=== PATIENT | female | born 1945 | race Caucasian/White ===

== ENCOUNTER 2019-11-17 13:57 | Outpatient (RCR) | payer OTHER, MEDICAID, SELFPAY | END 2020-02-15 23:59 | disposition home or self-care (01) | LOC: ANHDMC 13:57 | PROVIDERS: PCP Internal Medicine; Visit Provider Internal Medicine | DX: E11.51 Type 2 diabetes mellitus with diabetic peripheral angiopathy without gangrene (principal); Z71.89 Other specified counseling | CPT/HCPCS: G0108 ==

== ENCOUNTER 2020-03-08 15:18 | Outpatient (RCR) | payer OTHER, MEDICAID, SELFPAY | END 2020-06-06 23:59 | disposition home or self-care (01) | LOC: ANHDMC 15:18 | PROVIDERS: PCP Internal Medicine; Visit Provider Internal Medicine | DX: E11.51 Type 2 diabetes mellitus with diabetic peripheral angiopathy without gangrene (principal); Z71.89 Other specified counseling | CPT/HCPCS: G0108 ==

== ENCOUNTER 2020-06-05 08:45 | Outpatient (CLI) | payer OTHER, MEDICAID, SELFPAY ==
[2020-06-05 09:30] LABS: Alveolar/Arterial O2 Gradient 27.2 mmHg; Base Excess ABG 0.7 mEq/l (+/-2.0); Carboxyhemoglobin 0.4 % THb (0-2.0); Fractional Inspired Oxygen 21 %; HCO3 ABG 25.5 mEq/l (22.0-26.0); Methemoglobin ABG 0.2 %THb (0-1.5); Oxygen Content ABG 17.1 %vol (16.0-22.0); Oxygen Saturation ABG 94.7 % (95.0-100.0); Oxyhemoglobin 93.9 % THb (90.0-100.0); PCO2 ABG 41.5 mmHg (35.0-45.0); PO2 ABG 72.8 mmHg (80.0-100.0); PO2 FiO2 Ratio Arterial Blood 3.47 %; Reduced Hemoglobin 5.5 %THb (0-5.0); Site Drawn RIGHT RADIAL; Total Hemoglobin 12.9 g/dL (12.0-18.0); pH ABG 7.406 (7.350-7.450)
[2020-06-05 09:31] LABS: Device ROOM AIR; Modified Allen's Test Pass
--- NOTE | 2020-06-05 10:52 | PCRCNOTE ---
FAXED COPY OF ABG REPORT TO [facility]
--- NOTE | 2020-06-11 17:45 | WPDSIXMINUTE ---
Six Minute Walk Six Minute Walk: DOS: 06/05/2020 REQUESTING: Dayna Alanis MD REASON FOR TESTING: Shortness of breath SIX MINUTE WALK This test was conducted per ATS guidelines. The patient used her personal wheeled walker device during the walk and was on room air. Initial saturaiton was 93%, and pulse was 61. The lowest saturation was 90%. Pulse ranged 55-100 beats per minute. she walked a total of 500 ft/ 142 m. She did not stop during the test. At the end of the walk during recovery, saturation increased to 97%. Pulse returned to baseline. IMPRESSION: There was mild desaturation without timbo hypoxemia. No supplemental oxygen is required with exertion. Distance walked is less than expected for her age. Arterial blood gas on room air: pH 7.406; pCO2 41.5; pO2 72.8 Mildly decreased, HCO3 25.5; Saturation 94.7%, hemoglobin 12.9 g/dL. IMPRESSION: Normal acid-base status with mild hypoxemia.
== END 2020-06-05 08:46 | disposition home or self-care (01) ==
LOC: ANHPFT 08:48
PROVIDERS: PCP Internal Medicine; Visit Provider Internal Medicine Critical Care Medicine
DX: J44.9 Chronic obstructive pulmonary disease, unspecified (principal); R94.2 Abnormal results of pulmonary function studies
CPT/HCPCS: 36600; 82375; 82805; 83050; 94618

== ENCOUNTER 2020-08-11 02:21 | Outpatient (CLI) | payer OTHER, MEDICAID, SELFPAY ==
[2020-08-11 18:59] LABS: SARS-CoV-2 RNA PCR Negative
== END 2020-08-11 02:22 | disposition home or self-care (01) ==
LOC: ANHCOVIDDT 02:22
PROVIDERS: PCP Internal Medicine; Visit Provider Internal Medicine Critical Care Medicine
DX: Z01.812 Encounter for preprocedural laboratory examination (principal); Z20.828 Contact with and (suspected) exposure to other viral communicable diseases
CPT/HCPCS: 87635; C9803; U0003

== ENCOUNTER 2020-08-14 08:21 | Outpatient (CLI) | payer OTHER, MEDICAID, SELFPAY ==
--- NOTE | 2020-09-07 15:30 | WPDSLEEPSTUD ---
Sleep Study Date of Study: 08/14/20 Ordering Provider: Dayna Alanis MD Interpreting Physician: Dayna Alanis MD Sleep Study Type: BiPAP Titration Height: 1.73 m Weight: 117.027 kg Body Mass Index: 39.2 Neck Circumference: 50.8 cm Johnston: 5 Reason for Sleep Study Obstructive sleep apnea, has an old CPAP that needs to be replaced. On her CPAP titration on 07/17/2014 at [facility] her optimal pressure was 16 cm water pressure. Sleep History Desirae Parham is a 75 yo female with a history of obstructive sleep apnea syndrome, restrictive and obstructive lung disease. During the pain the mix she was not able to have a sleep study to replace her old CPAP machine. She presents now for a CPAP / BiPAP titration. She is generally too tired to do anything that she enjoys. She wakes up during the night, has excessive daytime sleepiness and difficulty staying awake during the day. She constantly snores loudly enough that others complain about it. She does not awaken at night with heartburn, belching or coughing. She does not wake up with shortness of breath. She does not have trouble sleeping with a cold. She does not gasp for breath at night or have breathing problems at night witnessed by others. She does not sweat excessively at night or notices her heart pounding or beating irregularly night. She frequently falls asleep during the day, occasionally involuntarily but not while driving because she does not drive a car. She occasionally falls asleep during physical effort. She does not have loss of muscle tone was straw motion. She does not have difficulty during the daytime due to excessive sleepiness. She does not feel paralyzed on waking or falling asleep and does not have vivid dream like seems upon awakening or falling asleep. She has never for a to go to sleep. She denies having nightmares. She does not have racing thoughts. She denies having feelings of saphenous or depression but she feels anxiety about the pandemic. she does not have muscular tension, does not notice parts of her body jerking, she does not kick at night and she does have probably aching feelings in her legs. She denies leg pain at night, does not have morning jaw pain and does not grind her teeth during sleep. She is not bothered by pain during, is not awakened by pain and does not wake up feeling in the morning. Denies waking up with pain in the neck and spine. Normal bedtime is 10:00 p.m. falling asleep within 3 times at night long enough to use. She estimates 6-8 hours of sleep normally. She denies taking naps. She feels good some mornings. Habits: Former smoker, none since 2005. No alcohol. [facility] Past Medical History Medical History (Updated 09/07/20 @ 15:33 by Dayna Alanis MD) Benign essential hypertension Chronic obstructive pulmonary disease, unspecified History of tobacco abuse Hyperlipidemia, unspecified Hypertensive heart disease with heart failure Morbid obesity with BMI of 50.0-59.9, adult DIPTI (obstructive sleep apnea) Primary open angle glaucoma (POAG) of both eyes, moderate stage Primary osteoarthritis of both knees PVD (peripheral vascular disease) Type 2 diabetes mellitus with diabetic autonomic neuropathy, with long-term current use of insulin Surgical History Surgical History (Updated 09/07/20 @ 15:52 by Dayna Alanis MD) Gallbladder & bile duct stone with obstruction S/P tonsillectomy and adenoidectomy Family History Family History Sibling Family history of primary malignant neoplasm of liver Family history of malignant neoplasm of breast in first degree relative Patient's sister is Patient's brother is Mother Family history of malignant neoplasm of breast in first degree relative Patient's mother is Family history of malignant neoplasm Father Patient's father is Social Histo
[2020-09-10 10:28] VITALS: BMI 39.2
== END 2020-08-14 08:22 | disposition home or self-care (01) ==
LOC: ANHCSM 08:22
PROVIDERS: PCP Internal Medicine; Visit Provider Internal Medicine Critical Care Medicine
DX: G47.33 Obstructive sleep apnea (adult) (pediatric) (principal); I11.0 Hypertensive heart disease with heart failure; I50.9 Heart failure, unspecified; I73.9 Peripheral vascular disease, unspecified; I25.10 Atherosclerotic heart disease of native coronary artery without angina pectoris; J44.9 Chronic obstructive pulmonary disease, unspecified; E11.43 Type 2 diabetes mellitus with diabetic autonomic (poly)neuropathy; E78.5 Hyperlipidemia, unspecified; E66.01 Morbid (severe) obesity due to excess calories; H40.1132 Primary open-angle glaucoma, bilateral, moderate stage; M17.0 Bilateral primary osteoarthritis of knee; Z79.4 Long term (current) use of insulin; Z87.891 Personal history of nicotine dependence
CPT/HCPCS: 95811

== ENCOUNTER 2020-11-08 09:12 | Outpatient (CLI) | payer OTHER, MEDICAID, SELFPAY ==
--- NOTE | ~2020-11-08 | MM_ITS ---
EXAMINATION: MM screening jayson BI w alexandra HISTORY: Screening mammogram, family history of breast cancer in her mother. TECHNIQUE: Craniocaudal and mediolateral oblique 3-D tomosynthesis images were obtained and synthetic 2-D images were generated. CAD analysis was submitted and interpreted. COMPARISON: 10/21/2019, 06/28/2018, 06/25/2017 BREAST PARENCHYMAL COMPOSITION: The breasts are heterogeneously dense, which may obscure small masses . FINDINGS: Scattered benign-appearing calcifications are present. There is no evidence of suspicious m ass, calcification, or architectural distortion to suggest malignancy in either breast. There has bee n no suspicious interval change. IMPRESSION: 1. No mammographic evidence of malignancy. 2. Recommend routine screening mammography in one year. BI-RADS Category 2: Benign finding(s). Reviewed, dictated and finalized at location A. ER GRADER
== END 2020-11-08 09:13 | disposition home or self-care (01) ==
PROVIDERS: PCP Internal Medicine; Visit Provider Internal Medicine
DX: Z12.31 Encounter for screening mammogram for malignant neoplasm of breast (principal)
CPT/HCPCS: 77063; 77067

== ENCOUNTER 2021-01-04 10:07 | Outpatient (CLI) | payer OTHER, MEDICAID, SELFPAY ==
--- NOTE | ~2021-01-04 | XR_ITS ---
EXAMINATION: XR shoulder RT min 2V DATE: 01/04/2021 10:28 INDICATION: Right shoulder osteoarthritis. TECHNIQUE: 4 views of right shoulder were obtained. COMPARISON: Right shoulder radiographs 03/20/2018 FINDINGS: Bone alignment is normal. No acute fracture. There is advanced osteoarthritis of glenohumer al joint. There is chronic aspherical deformity of the humeral head. There is severe osteoarthritis o f acromioclavicular joint. IMPRESSION: 1. Polyarticular osteoarthritis. Reviewed, dictated and finalized at location A. RMATORY ATTENDANT
--- NOTE | ~2021-01-04 | XR_ITS ---
EXAMINATION: XR shoulder LT min 2V DATE: 01/04/2021 10:28 INDICATION: Left shoulder osteoarthritis. TECHNIQUE: 4 views of left shoulder were obtained. COMPARISON: None. FINDINGS: Bone alignment is normal. No fracture. There is advanced osteoarthritis of glenohumeral fabio nt and mild osteoarthritis of acromioclavicular joint. IMPRESSION: 1. Polyarticular osteoarthritis. Reviewed, dictated and finalized at location A. OR ACCOUNTANT
== END 2021-01-04 10:08 | disposition home or self-care (01) ==
LOC: ANHIMG 10:11
PROVIDERS: PCP Internal Medicine; Visit Provider Internal Medicine
DX: M19.011 Primary osteoarthritis, right shoulder (principal); M19.012 Primary osteoarthritis, left shoulder
CPT/HCPCS: 73030

== ENCOUNTER 2021-06-01 10:39 | Emergency (ER) | payer OTHER, MEDICAID, SELFPAY ==
--- NOTE | ~2021-06-01 | US_ITS ---
EXAMINATION: US venous doppler [facility] DATE: 06/01/2021 12:56 INDICATION: Left lower limb pain TECHNIQUE: Grayscale ultrasound images without and with compression and Doppler ultrasound images of the left lower extremity veins were obtained. COMPARISON: None. FINDINGS: The visualized portions of left common femoral vein, profunda (deep) femoral vein, femoral vein, popl iteal vein, peroneal veins, posterior tibial veins, gastrocnemius vein and greater saphenous vein out flow are patent. IMPRESSION: 1. No deep venous thrombosis in the left lower limb. Reviewed, dictated and finalized at location A.
[2021-06-01 11:03] VITALS: BP 141/93; PULSE 68; RESP 20; TEMP 36.3; O2SAT 96
[2021-06-01 12:28] VITALS: BP 145/66; PULSE 59; RESP 18; TEMP 36.4; O2SAT 98
--- NOTE | 2021-06-01 12:30 | PC.NURSE ---
Patient moved from chair to bed with serasteady. Assistance x2 needed to position patient in bed. [place] provided.
--- NOTE | 2021-06-01 12:40 | PC.NURSE ---
Patient reports pain to the left leg. She states pain is from knee to the hip and is worse with movement. She denies any injury or trauma. There is no obvious deformity noted. Pain is reported with palpation around the left knee. There is a small yellowish purple bruise to the front of the lower thigh. No pain with palpation to that area. She has no loss of sensation or motor function in the lower extremity. She does report ongoing weakness but states she uses a walker to get up and around.
--- NOTE | 2021-06-01 13:48 | ED.GENADULT ---
HPI - General Adult General Chief complaint: Extremity Injury, Lower Stated complaint: L LEG PAIN Time Seen by Provider: 06/01/21 11:14 Source: patient Mode of arrival: ambulatory Limitations: no limitations History of Present Illness HPI narrative: Patient is 75-year-old female who presents with a left leg pain that has been ongoing from the foot up into the thigh she denies injury or trauma she has not been seen for this complaint pain is an aching pain to the left mid thigh she has never had similar occurrence in the past she is currently on anticoagulation has been compliant with this. She presents per private vehicle in no distress and denies other complaints Related Data Home Medications Medication Instructions Recorded Confirmed rivaroxaban 2.5 mg tablet 2.5 mg PO BID 10/10/19 04/24/21 timolol maleate 0.5 % once daily 1 drop EACH EYE Q12H 10/10/19 04/24/21 eye drops aspirin 81 mg chewable tablet 81 mg PO DAILY 01/12/20 04/24/21 calcium carbonate-vitamin D3 600 cap PO 04/10/20 04/24/21 mg (1,500 mg)-400 unit capsule acetaminophen 500 mg tablet 500 mg PO Q6H 02/07/21 04/24/21 Allergies Allergy/AdvReac Type Severity Reaction Status Date / Time No Known Allergies Allergy Unknown Verified 06/01/21 12:35 Review of Systems Review of Systems: All systems reviewed & are unremarkable except as noted in HPI and below PMFSH Past Medical History Medical History Benign essential hypertension Chronic obstructive pulmonary disease, unspecified History of tobacco abuse Hyperlipidemia, unspecified Hypertensive heart disease with heart failure Morbid obesity with BMI of 50.0-59.9, adult DIPTI (obstructive sleep apnea) Primary open angle glaucoma (POAG) of both eyes, moderate stage Primary osteoarthritis of both knees PVD (peripheral vascular disease) Type 2 diabetes mellitus with diabetic autonomic neuropathy, with long-term current use of insulin Surgical History Surgical History Gallbladder & bile duct stone with obstruction S/P tonsillectomy and adenoidectomy Family History Family History Sibling Family history of primary malignant neoplasm of liver Family history of malignant neoplasm of breast in first degree relative Patient's sister is Patient's brother is Mother Family history of malignant neoplasm of breast in first degree relative Patient's mother is Family history of malignant neoplasm Father Patient's father is Social History Social History Smoking packs per day: 1.5 Smoking cigarettes per day: 30.0 Years smoked: 25 Smoking pack-years: 37.50 Smoking status: Former smoker Tobacco type: cigarettes Smoking end date: 11/02/05 Alcohol intake: never Gender identity (if verbalized by the patient): Female Exam Narrative: GENERAL: Well-appearing, obese, and in no acute distress. HEAD: Normocephalic, atraumatic. EYES: PERRLA and EOMI. ENT: Nares clear, no rhinorrhea or epistaxis. Mucous membranes moist. CHEST: Clear to auscultation. No respiratory distress. No wheezes rales or rhonchi HEART: Regular rate and rhythm. No murmur heard. Normal peripheral pulses. EXTREMITIES: Normal range of motion. No edema. SKIN: Warm, dry, no rash. NEURO: No focal deficits. Alert and oriented x3. Cranial nerves II through XII grossly intact. Neurovascularly intact. Capillary refill less than 2 seconds PSYCH: Normal mood and affect. Course Course Emergency Course: Patient evaluated the emergency department no distress will be discharged home with outpatient follow-up with her primary care and vascular specialist Vital Signs Vital signs: Vital Signs Temperature 97.3 F L 06/01/21 11:03 Pulse Rate 68 06/01/21 1
[2021-06-01 14:32] VITALS: BP 135/63; PULSE 64; RESP 18; TEMP 36.2; O2SAT 98
== END 2021-06-01 14:32 | disposition home or self-care (01) ==
PROVIDERS: Emergency Provider Emergency Medicine; PCP Internal Medicine
DX: M79.605 Pain in left leg (principal); J44.9 Chronic obstructive pulmonary disease, unspecified; E78.5 Hyperlipidemia, unspecified; I11.9 Hypertensive heart disease without heart failure; E11.51 Type 2 diabetes mellitus with diabetic peripheral angiopathy without gangrene; E11.43 Type 2 diabetes mellitus with diabetic autonomic (poly)neuropathy; E66.01 Morbid (severe) obesity due to excess calories; Z68.43 Body mass index [BMI] 50.0-59.9, adult; M17.0 Bilateral primary osteoarthritis of knee; Z79.82 Long term (current) use of aspirin; Z79.01 Long term (current) use of anticoagulants; Z79.84 Long term (current) use of oral hypoglycemic drugs; Z87.891 Personal history of nicotine dependence
CPT/HCPCS: 93971; 99284

== ENCOUNTER 2021-06-07 10:31 | Outpatient (CLI) | payer OTHER, MEDICAID, SELFPAY ==
--- NOTE | ~2021-06-07 | XR_ITS ---
XR knee LT min 4V DATE: 06/07/2021 11:12 INDICATION: Left leg and hip pain TECHNIQUE: 4 views including crosstable lateral COMPARISON: None FINDINGS: There is diffuse osteopenia. There is severe loss of medial compartment joint space and prominent particular spurring at the media l compartment. There is prominent periarticular spurring at the lateral and patellofemoral compartments. No fracture or dislocation, periosteal reaction or bone destruction is detected. Arterial calcifications of the femoral, popliteal, trifurcation arteries IMPRESSION: Tricompartment osteoarthritis, particularly severe at the medial compartment Osteopenia Reviewed, dictated and finalized at location B. IMPRESSION: Tricompartment osteoarthritis, particularly severe at the medial co mpartment Osteopenia
--- NOTE | ~2021-06-07 | XR_ITS ---
XR hip LT min 2V DATE: 06/07/2021 11:12 INDICATION: Chronic left hip pain TECHNIQUE: AP and lateral views COMPARISON: None FINDINGS: Moderate left hip primary osteoarthritis. Diffuse osteopenia. No fracture, dislocation, avascular necrosis or bone destruction of the left hip. The pubic symphysis and sacroiliac joints appear intact. Prominent femoral artery calcification. IMPRESSION: Moderately prominent left hip osteophyte is Osteopenia Reviewed, dictated and finalized at location B.
== END 2021-06-07 10:32 | disposition home or self-care (01) ==
PROVIDERS: PCP Internal Medicine
DX: M17.12 Unilateral primary osteoarthritis, left knee (principal); M85.862 Other specified disorders of bone density and structure, left lower leg; M85.852 Other specified disorders of bone density and structure, left thigh
CPT/HCPCS: 73502; 73564

== ENCOUNTER → 2021-09-03 09:09 | Outpatient (CLI) | payer OTHER, MEDICAID, SELFPAY ==
--- NOTE | ~2021-09-03 | XR_ITS ---
EXAMINATION: XR knee RT 2V INDICATION: Right knee pain TECHNIQUE: Two views of the right knee are obtained. COMPARISON: None available FINDINGS: There is tricompartmental osteoarthritis of the knee, moderate in the medial and patellofem oral compartment. No fracture is identified. There is no joint effusion. An endovascular stent is pre sent in the thigh. IMPRESSION: 1. Osteoarthritis without acute osseous abnormality. Reviewed, dictated and finalized at location B.
--- NOTE | ~2021-09-03 | XR_ITS ---
EXAMINATION: XR shoulder LT min 2V INDICATION: Left shoulder pain TECHNIQUE: Four views of the left shoulder are submitted. COMPARISON: 01/24/2021 FINDINGS: Normal alignment. No fracture. There is unchanged advanced osteoarthritis of the glenohumer al joint. Mild osteoarthritis is noted in the acromioclavicular joint. Soft tissues are unremarkable. IMPRESSION: 1. Unchanged osteoarthritis without acute osseous abnormality. Reviewed, dictated and finalized at location B.
--- NOTE | ~2021-09-03 | XR_ITS ---
EXAMINATION: XR knee LT 2V INDICATION: Left knee pain TECHNIQUE: Two views of the left knee are obtained. COMPARISON: 06/07/2021 FINDINGS: There is tricompartment osteoarthritis, severe in the medial and patellofemoral compartment s. No joint effusion is identified. There is no fracture. Calcified atherosclerosis noted. IMPRESSION: 1. Tricompartmental osteoarthritis without acute osseous abnormality or significant interval change. Reviewed, dictated and finalized at location B. IMPRESSION: 1. Tricompartmental osteoarthritis without acute osseous abnormality or signifi cant interval change.
--- NOTE | ~2021-09-03 | XR_ITS ---
EXAMINATION: XR shoulder RT min 2V INDICATION: Right shoulder pain TECHNIQUE: Four views of the right shoulder are submitted. COMPARISON: 01/04/2021 FINDINGS: Normal alignment. No fracture. There is unchanged advanced osteoarthritis of the glenohumer al and acromioclavicular joints. Chronic deformity of the humeral head is again noted. Soft tissues a re unremarkable. IMPRESSION: 1. Osteoarthritis without acute findings or significant interval change. Reviewed, dictated and finalized at location B.
== END ==
PROVIDERS: PCP Internal Medicine; Visit Provider Nurse Practitioner Family
DX: M19.011 Primary osteoarthritis, right shoulder (principal); M19.012 Primary osteoarthritis, left shoulder; M17.0 Bilateral primary osteoarthritis of knee
CPT/HCPCS: 73030; 73560

== ENCOUNTER 2021-09-12 10:30 | Outpatient (RCR) | payer OTHER, MEDICAID, SELFPAY | END 2021-09-12 11:46 | disposition home or self-care (01) | LOC: ANHDMC 10:30 | PROVIDERS: PCP Internal Medicine; Visit Provider Internal Medicine | DX: E11.51 Type 2 diabetes mellitus with diabetic peripheral angiopathy without gangrene (principal); Z71.89 Other specified counseling | CPT/HCPCS: G0108 ==

== ENCOUNTER → 2021-11-28 08:56 | Outpatient (CLI) | payer OTHER, MEDICAID, SELFPAY ==
--- NOTE | ~2021-11-28 | XR_ITS ---
EXAMINATION: XR ankle RT 2V DATE: 11/28/2021 09:26 INDICATION: Right ankle pain. TECHNIQUE: 2 views of right ankle were obtained. COMPARISON: None. FINDINGS: Bone alignment is normal. No fracture. There is a 3.5 cm lesion of patchy and serpiginous s clerosis in distal tibia. There is patchy sclerosis in calcaneal tuberosity. There is chronic appeari ng heterotopic ossification distal to medial malleolus. There is moderate osteoarthritis of the ankle joint. There is moderate midfoot osteoarthritis. There are enthesophytes at the posterior and planta r aspects of calcaneal tuberosity. Ankle soft tissue swelling is noted. IMPRESSION: 1. Moderate polyarticular osteoarthritis. 2. Sclerosis in distal tibia and in calcaneal tuberosity, likely osteonecrosis. Reviewed, dictated and finalized at location A. TER
== END ==
PROVIDERS: PCP Internal Medicine; Visit Provider Nurse Practitioner Family
DX: M19.071 Primary osteoarthritis, right ankle and foot (principal)
CPT/HCPCS: 73600

== ENCOUNTER 2022-07-14 08:03 | Outpatient (CLI) | payer OTHER, MEDICAID, SELFPAY ==
--- NOTE | ~2022-07-14 | MM_ITS ---
EXAMINATION: MM screening jayson BI w alexandra HISTORY: Screening mammogram TECHNIQUE: Craniocaudal and mediolateral oblique 3-D tomosynthesis images were obtained and synthetic 2-D images were generated. CAD analysis was submitted and interpreted. COMPARISON: 11/08/2020, 10/21/2019, 06/28/2018 bilateral screening mammogram examinations BREAST PARENCHYMAL COMPOSITION: The breasts are heterogeneously dense, which may obscure small masses . FINDINGS: Scattered bilateral benign calcifications are again noted. Question of subtle new architectural distortion in the upper outer left breast. Diagnostic left mammo gram and left breast ultrasound examination are recommended. Otherwise there is no evidence of suspicious mass, calcification, or architectural distortion to sugg est malignancy in either breast. There has been no other suspicious interval change. IMPRESSION: 1. Questionable interval subtle architectural distortion in the upper outer quadrant of the left [address]mila st 2. Diagnostic left mammogram and left breast ultrasound examination are recommended. BI-RADS Category 0: Incomplete: Needs additional imaging evaluation. Reviewed, dictated and finalized at location A. IMPRESSION: 1. Questionable interval subtle architectural distortion in the upper outer daniel drant of the left breast 2. Diagnostic left mammogram and left breast ultrasound examination are recomme nded. BI-RADS Category 0: Incomplete: Needs additional imaging evaluation.
== END 2022-07-14 08:04 | disposition home or self-care (01) ==
PROVIDERS: PCP Internal Medicine; Visit Provider Internal Medicine
DX: Z12.31 Encounter for screening mammogram for malignant neoplasm of breast (principal); R92.8 Other abnormal and inconclusive findings on diagnostic imaging of breast
CPT/HCPCS: 77063; 77067

== ENCOUNTER 2022-10-14 05:11 | Emergency (ER) | payer OTHER, MEDICAID, SELFPAY ==
[2022-10-14 05:13] VITALS: BP 112/93; PULSE 88; RESP 20; O2SAT 98
[2022-10-14 07:30] VITALS: BP 106/73; PULSE 88; RESP 18; O2SAT 98
[2022-10-14 07:44] LABS: Influenza A QL RT-PCR Negative (Negative); Influenza B QL RT-PCR Negative (Negative); RSV RNA, RT-PCR Negative (Negative); SARS-CoV-2 RNA PCR Negative
--- NOTE | 2022-10-14 07:53 | ECG_ITS ---
Measurements Intervals [place] Rate: 91 P: -73 WA: 145 QRS: 32 QRSD: 86 T: 26 QT: 345 QTc: 425 Interpretive Statements ECTOPIC ATRIAL RHYTHM WITH OCCASIONAL VENTRICULAR PREMATURE COMPLEXES LOW QRS VOLTAGE [QRS DEFLECTION < 0.5/1.0 mV IN LIMB/CHEST LEADS] NO PREVIOUS ECG AVAILABLE FOR COMPARISON Electronically Signed On 10-14-2022 16:27:50 CHILD LIFE ASSISTANT by Riley Wadsworth M.D.
--- NOTE | 2022-10-14 07:53 | ED.GENADULT ---
HPI - General Adult General Chief complaint: Weakness Stated complaint: UNSPECIFIED Time Seen by Provider: 10/14/22 06:51 History of Present Illness HPI narrative: 77-year-old female presenting to the emergency department for evaluation of lower extremity weakness. Patient states that yesterday she was feeling okay and last night she went to use the bathroom. Patient states that she noticed that a piece of feces had landed on the floor and when she went to pick it up she stated that she was unable to stand up. Patient denies any falls or injuries but states that her and her son needed to call an ambulance to assist her in getting up. Patient states that her legs were then so weak that she was unable to walk so patient presented to the emergency department for evaluation. Patient has a past medical history of lower extremity weakness, type 2 diabetes, hypertension, hyperlipidemia, congestive heart failure. Related Data Home Medications Medication Instructions Recorded Confirmed rivaroxaban 2.5 mg tablet (Xarelto) 2.5 mg PO BID 10/10/19 08/04/22 timolol maleate 0.5 % once daily 1 drop ophthalmic (eye) Q12H 10/10/19 08/04/22 eye drops aspirin 81 mg chewable tablet 81 mg PO DAILY 01/12/20 08/04/22 (Mayo Chewable Low Dose Aspirin) calcium carbonate 600 mg-vitamin cap PO 04/10/20 08/04/22 D3 10 mcg (400 unit) capsule acetaminophen 500 mg tablet 500 mg PO Q6H 02/07/21 08/04/22 (Tylenol Extra Strength) lancets 30 gauge ([employer] 10/21/21 08/04/22 Lancets) Allergies Allergy/AdvReac Type Severity Reaction Status Date / Time No Known Allergies Allergy Unknown Verified 08/04/22 08:31 Review of Systems Review of Systems: CONSTITUTIONAL: Generalized weakness EYES: Denies visual changes, redness, or discharge. ENT: Denies rhinorrhea, congestion, sore throat, or otalgia. CARDIOVASCULAR: Denies chest pain, palpitations, or edema. RESPIRATORY: Denies cough or dyspnea. GASTROINTESTINAL: Denies abdominal pain, nausea, vomiting, or diarrhea. GENITOURINARY: Denies dysuria or hematuria. SKIN: Skin tears MUSCULOSKELETAL: Denies back pain, joint pain, or myalgia. NEUROLOGIC: Denies headache, numbness, or weakness. PSYCHIATRIC: Denies anxiety or depression. 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 Morbid obesity with BMI of 50.0-59.9, adult Normocytic anemia DIPTI (obstructive sleep apnea) Poor historian Positive colorectal cancer screening using Cologuard test Primary open angle glaucoma (POAG) of both eyes, moderate stage Primary osteoarthritis of both knees PVD (peripheral vascular disease) Screening mammogram, encounter for Type 2 diabetes mellitus with diabetic autonomic neuropathy, with long-term current use of insulin Surgical History Surgical History Gallbladder & bile duct stone with obstruction S/P tonsillectomy and adenoidectomy Family History Family History Sibling Family history of primary malignant neoplasm of liver Family history of malignant neoplasm of breast in first degree relative Patient's sister is Patient's brother is Mother Family history of malignant neoplasm of breast in first degree relative Patient's mother is Family history of malignant neoplasm Father Patient's father is Social History Social History Smoking packs per day: 1.5 Smoking cigarettes per day: 30.0 Years smoked: 25 Smoking pack-years: 37.50 Smoking status
[2022-10-14 08:15] LABS: Basophils Percent Auto 0.3 % (0.2-1.2); Eosinophils Absolute Auto 0.1 K/mm3 (0-0.3); Hematocrit 34.5 % (37.0-47.0); Immature Granulocyte Absolute 0.02 K/mm3 (0.00-0.031); Immature Granulocyte Percent A 0.3 % (0-0.5); Lymphocytes Absolute Auto 0.97 K/mm3 (0.9-3.2); Lymphocytes Percent Auto 13.4 % (18.3-44.2); Mean Corpuscular HGB Conc 31.9 g/dl (32-36); Mean Corpuscular Hemoglobin 30.8 pg (26-34); Mean Corpuscular Volume 96.6 fl (80-100); Mean Platelet Volume 9.7 fl (7.4-10.4); Monocytes Absolute Auto 0.6 K/mm3 (0.1-0.6); Monocytes Percent Auto 8.4 % (2.6-8.5); Neutrophils Absolute Auto 5.6 K/mm3 (1.3-6.7); Neutrophils Percent Auto 76.6 % (45.5-73.1); Platelet Count Result 155 k/mm3 (150-375); Red Blood Count 3.57 M/mm3 (4.2-5.4); Red Cell Distribution Width 14.3 % (11.5-14.5); White Blood Count 7.2 K/mm3 (4.5-10.0)
[2022-10-14 08:30] VITALS: BP 103/67; PULSE 90; RESP 16; O2SAT 98
[2022-10-14 08:30] LABS: Alanine Aminotransferase 19 U/L (6-35); Albumin Level 3.9 g/dL (3.5-5.1); Alkaline Phosphatase 85 U/L (38-126); Anion Gap 2 mmol/L (8-16); Aspartate Amino Transferase 29 U/L (14-36); Bilirubin,Total 0.5 mg/dL (0.2-1.3); Blood Urea Nitrogen 32 mg/dL (7-17); Calcium 8.7 mg/dL (8.4-10.2); Carbon Dioxide 31 mmol/L (22-30); Chloride 103 mmol/L (98-107); Estimated Glomerular Filt Rate > 60; Glucose 203 mg/dL (65-110); Potassium 4.6 mmol/L (3.4-5.0); Sodium 136 mmol/L (137-145)
[2022-10-14 08:57] LABS: Add Urine Microscopic? YES; Appearance Urine Clear (Clear); Bilirubin Urine Negative (Negative); Blood Urine Trace-Intact (Negative); Color Urine Light Yellow (Yellow); Glucose Urine UA 3+ mg/dL (Negative); Ketones Urine Negative (Negative); Leukocyte Esterase Ur Negative LEU/UL (Negative); Nitrate Urine Negative (Negative); Protein Urine Trace mg/dL (Negative); Urobilinogen Urine 0.2 mg/dL (<2.0); pH Urine 5.5 (5.0-9.0)
[2022-10-14 09:10] LABS: Bacteria Urine Trace /hpf; Squamous Epithelial Cell Urine Occasional /hpf (Few); WBC Urine 0-3 /hpf
[2022-10-14 10:03] VITALS: BP 134/70; PULSE 97; RESP 21; O2SAT 98
--- NOTE | 2022-10-14 10:36 | PC.NURSE ---
PT REQUESTED THAT I CALL HER SON REGARDING HER HOUSE KEYS AND WALKER.
[2022-10-14 11:00] VITALS: BP 115/72; PULSE 93; RESP 18; O2SAT 100
[2022-10-14 11:45] VITALS: BP 115/76; PULSE 80; RESP 16; O2SAT 100
== END 2022-10-14 11:45 | disposition home or self-care (01) ==
PROVIDERS: Emergency Provider Emergency Medicine; PCP Internal Medicine
DX: R53.1 Weakness (principal); Z20.822 Contact with and (suspected) exposure to COVID-19; E11.9 Type 2 diabetes mellitus without complications; E78.5 Hyperlipidemia, unspecified; I11.0 Hypertensive heart disease with heart failure; I50.9 Heart failure, unspecified
CPT/HCPCS: 36415; 80053; 81001; 85025; 87637; 93005; 99283

== ENCOUNTER 2022-10-31 12:03 | Outpatient (CLI) | payer OTHER, MEDICAID, SELFPAY ==
--- NOTE | ~2022-10-31 | MMUS_ITS ---
EXAMINATION: MM diagnostic jayson LT w alexandra, US breast LT limited HISTORY: Questionable interval subtle architectural distortion in upper outer quadrant of left breast on 07/14/2022 screening mammogram TECHNIQUE: Additional 3-D tomosynthesis images of the breasts were performed and synthetic 2-D images were generated. CAD analysis was submitted and interpreted. High resolution upper outer quadrant and lower outer quadrant left breast ultrasound was performed. COMPARISON: 07/14/2022 bilateral screening mammogram BREAST PARENCHYMAL COMPOSITION: The breasts are heterogeneously dense, which may obscure small masses . FINDINGS: MAMMOGRAPHIC FINDINGS: There is dense stroma in the outer half of the left breast, particularly upper outer quadrant. No rep roducible mass or architectural distortion is evident. There are benign calcifications. ULTRASOUND: No suspicious mass or shadowing is detected in the upper outer or lower outer quadrants of the left b reast. IMPRESSION: 1. No mammographic evidence of malignancy 2. Routine annual mammographic screening is recommended. BI-RADS Category 1: Negative Reviewed, dictated and finalized at location A. NT ASSOCIATE IMPRESSION: 1. No mammographic evidence of malignancy 2. Routine annual mammographic screening is recommended. BI-RADS Category 1: Negative
--- NOTE | ~2022-10-31 | DEXA_ITS ---
Bone Density Report Name: TY KELSEY I Age: 77 Sex: Female Ethnicity: White Date of : 1945 Indication: postmenopausal; screening for osteoporosis; height loss; Referring Provider: KEATON KIM Study: Bone densitometry was performed. Exam Date: October 31, 2022 Accession number: [id number] Bone Density: Region BMD T-score Z-score Classification Total Forearm (Left) 0.424 -2.9 -0.3 1/3 Forearm (Left) 0.510 -3.1 -0.4 UD Forearm (Left) 0.336 -1.8 0.1 World Health Organization criteria for BMD impression classify patients as: Normal (T-score at or above -1.0), Osteopenia (T-score between -1.0 and -2.5), or Osteoporosis (T-score at or below -2.5). Clinical Information Provided by Patient: Patient maximum height was 59 Menopause Age: 53 No regular weight bearing exercise Drinks caffeinated beverages Onset of menses at age 13 Number of children 2 Impression: The patient has osteoporosis, based on the Left Third Radius T-score. Discussion: INCREASED RISK OF FRACTURE. BONE DENSITY IS UNDESIRABLY LOW AT ONE OR MORE SKELETAL SITES, CONSISTENT WITH POSTMENOPAUSAL OSTEOPOROSIS. This patient's lowest T-score meets the World Health Organization's (WHO) criteria for osteoporosis at one or more sites (T-score -2.5 or below). In untreated patients, the risk of osteoporotic fracture increases approximately two-fold for each 1.0 SD decrease in T-score. Low bone density is not the only risk factor for fracture; also consider factors such as patient's age, frailty or poor health, risk of falling, risk of injury, previous osteoporotic fracture, family history of osteoporosis, cigarette smoking, low body weight, etc. Not everyone with low bone mineral density has osteoporosis; osteomalacia and other metabolic bone disorders should also be considered. Patients who have osteoporosis should be evaluated for specific diseases and conditions (secondary causes) that may cause or contribute to bone loss. The [place] Association [employer] Clinical Endocrinologists (AACE) and National Osteoporosis Foundation (NOF) recommend pharmacologic intervention for all postmenopausal women whose T-score is in this range. The patient should follow a healthful lifestyle (good nutrition with adequate calcium and vitamin D, and appropriate weight-bearing exercise). Follow-Up: Consider a repeat BMD and Vertebral Fracture Assessment (VFA) exam in 2 years or sooner if medically necessary, to reassess this patient's status. Reported by: KHUSHBOO on 10/31/2022 1:00:00 PM. Reviewed, dictated and finalized at location [facility]
== END 2022-10-31 12:04 | disposition home or self-care (01) ==
LOC: ANHIMG 12:04
PROVIDERS: PCP Internal Medicine; Visit Provider Internal Medicine
DX: R92.8 Other abnormal and inconclusive findings on diagnostic imaging of breast (principal); Z78.0 Asymptomatic menopausal state
CPT/HCPCS: 76642; 77061; 77065; 77081; G0279

== ENCOUNTER 2022-12-14 17:33 | Emergency (ER) | payer OTHER, MEDICAID, SELFPAY ==
[2022-12-14 17:34] VITALS: BP 113/97; PULSE 74; RESP 18; TEMP 36.7; O2SAT 99
--- NOTE | 2022-12-14 17:42 | ED.LOWEXIN ---
HPI - Extremity Injury (Lower) General Chief Complaint: Extremity Injury, Lower Stated Complaint: leg pain History of Present Illness HPI Narrative: 77-year-old female with a history of type 2 diabetes, PVD, obesity, DIPTI, CHF, hyperlipidemia, DIPTI arrives via EMS for pain in her lower extremities and bilateral shoulders. Patient states she woke up this morning with pain, got out of bed, the pain worsened and she got back in bed. Report she has been laying in bed for 12+ hours. States she called EMS to be brought to the ED for her leg pain. She denies any trauma, falls. Denies fever, body aches, chills, rash, nausea, vomiting, diarrhea, abdominal pain, chest pain, shortness of breath, cough, loss of bowel or bladder control, saddle anesthesia. She has been taking all her meds as prescribed, including her tramadol for OA without much relief. Patient reports she lives at home with her son who helps take care of her. Blood glucose 128 per EMS. Related Data Home Medications Medication Instructions Recorded Confirmed rivaroxaban 2.5 mg tablet (Xarelto) 2.5 mg PO BID 10/10/19 08/04/22 timolol maleate 0.5 % once daily 1 drop ophthalmic (eye) Q12H 10/10/19 08/04/22 eye drops aspirin 81 mg chewable tablet 81 mg PO DAILY 01/12/20 08/04/22 (Mayo Chewable Low Dose Aspirin) acetaminophen 500 mg tablet 500 mg PO Q6H 02/07/21 08/04/22 (Tylenol Extra Strength) lancets 30 gauge (Advanced Travel 10/21/21 08/04/22 Lancets) Allergies Allergy/AdvReac Type Severity Reaction Status Date / Time No Known Allergies Allergy Unknown Verified 12/14/22 17:38 Review of Systems Review of Systems: CONSTITUTIONAL: Denies fever, chills EYES: Denies visual changes, redness, or discharge. ENT: Denies rhinorrhea, congestion, sore throat, or otalgia. CARDIOVASCULAR: Denies chest pain, palpitations, or edema. RESPIRATORY: Denies cough or dyspnea. GASTROINTESTINAL: Denies abdominal pain, nausea, vomiting, or diarrhea. GENITOURINARY: Denies dysuria or hematuria. SKIN: Denies rash or itching. MUSCULOSKELETAL: See HPI. NEUROLOGIC: Denies headache, numbness, dizziness, or weakness. PSYCHIATRIC: Denies anxiety or depression. 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 care use of drug Morbid obesity with BMI of 50.0-59.9, adult Normocytic anemia DIPTI (obstructive sleep apnea) Poor historian Positive colorectal cancer screening using Cologuard test Primary open angle glaucoma (POAG) of both eyes, moderate stage Primary osteoarthritis of both knees PVD (peripheral vascular disease) Screening mammogram, encounter for Type 2 diabetes mellitus with diabetic autonomic neuropathy, with long-term current use of insulin Surgical History Surgical History Gallbladder & bile duct stone with obstruction S/P tonsillectomy and adenoidectomy Family History Family History Sibling Family history of primary malignant neoplasm of liver Family history of malignant neoplasm of breast in first degree relative Patient's sister is Patient's brother is Mother Family history of malignant neoplasm of breast in first degree relative Patient's mother is Family history of malignant neoplasm Father Patient's father is Social History Social History Smoking packs per day: 1.5 Smoking cigarettes per day: 30.0 Years smoked: 25 Smoking pack-years: 37.50 Smoking status: Former smoker Tobacco type: cigarettes Second vega
[2022-12-14] MEDS: HYDROcodone/acetaminophen (*CRX) 10-325 MG TABLET 1 TAB PO (17:49)
[2022-12-14 17:57] LABS: Basophils Percent Auto 0.4 % (0.2-1.2); Eosinophils Absolute Auto 0.1 K/mm3 (0-0.3); Eosinophils Percent Auto 2.5 % (0-4.4); Hematocrit 34.6 % (37.0-47.0); Hemoglobin 11.3 g/dL (12.0-15.0); Immature Granulocyte Absolute 0.01 K/mm3 (0.00-0.031); Immature Granulocyte Percent A 0.2 % (0-0.5); Lymphocytes Absolute Auto 1.15 K/mm3 (0.9-3.2); Lymphocytes Percent Auto 22.2 % (18.3-44.2); Mean Corpuscular HGB Conc 32.7 g/dl (32-36); Mean Corpuscular Volume 95.1 fl (80-100); Mean Platelet Volume 9.2 fl (7.4-10.4); Monocytes Absolute Auto 0.4 K/mm3 (0.1-0.6); Monocytes Percent Auto 8.3 % (2.6-8.5); Neutrophils Absolute Auto 3.4 K/mm3 (1.3-6.7); Neutrophils Percent Auto 66.4 % (45.5-73.1); Platelet Count Result 169 k/mm3 (150-375); Red Blood Count 3.64 M/mm3 (4.2-5.4); Red Cell Distribution Width 12.9 % (11.5-14.5); White Blood Count 5.2 K/mm3 (4.5-10.0)
[2022-12-14 18:07] LABS: Alanine Aminotransferase 15 U/L (6-35); Albumin Level 3.8 g/dL (3.5-5.1); Alkaline Phosphatase 97 U/L (38-126); Anion Gap 9 mmol/L (8-16); Aspartate Amino Transferase 21 U/L (14-36); Bilirubin,Total 0.8 mg/dL (0.2-1.3); Blood Urea Nitrogen 17 mg/dL (7-17); Calcium 8.6 mg/dL (8.4-10.2); Carbon Dioxide 27 mmol/L (22-30); Chloride 104 mmol/L (98-107); Estimated Glomerular Filt Rate > 60; Glucose 146 mg/dL (65-110); Potassium 4.2 mmol/L (3.4-5.0); Sodium 140 mmol/L (137-145)
[2022-12-14 18:15] LABS: Creatine Kinase 25 U/L (30-135)
[2022-12-14 18:32] LABS: Appearance Urine Clear (Clear); Bilirubin Urine 2+ (Negative); Blood Urine Trace-lysed (Negative); Color Urine Yellow (Yellow); Glucose Urine UA 3+ mg/dL (Negative); Ketones Urine 3+ mg/dL (Negative); Leukocyte Esterase Ur Negative LEU/UL (Negative); Nitrate Urine Negative (Negative); Protein Urine 1+ mg/dL (Negative); Specific Grav Ur 1.025 (1.001-1.035); Urobilinogen Urine 0.2 mg/dL (<2.0)
[2022-12-14 18:34] LABS: Bacteria Urine Trace /hpf; Mucus Urine Rare /lpf; RBC Urine 0-2 /hpf (0-2); Squamous Epithelial Cell Urine Few /hpf (Few); WBC Urine 0-3 /hpf
[2022-12-14 18:36] LABS: Add Urine Microscopic? YES
[2022-12-14] MEDS: KETOROLAC 30 MG/ML VIAL (*BKC) IM (18:40)
--- NOTE | 2022-12-14 18:43 | PC.NURSE ---
Patient's son called to give patient ride home. Patient's son will be on his way soon to pick patient up.
== END 2022-12-14 19:34 | disposition home or self-care (01) ==
PROVIDERS: Emergency Provider Physician Assistant; PCP Internal Medicine
DX: M17.0 Bilateral primary osteoarthritis of knee (principal); E11.51 Type 2 diabetes mellitus with diabetic peripheral angiopathy without gangrene; I73.9 Peripheral vascular disease, unspecified; E11.43 Type 2 diabetes mellitus with diabetic autonomic (poly)neuropathy; E11.39 Type 2 diabetes mellitus with other diabetic ophthalmic complication; H40.1132 Primary open-angle glaucoma, bilateral, moderate stage; H42 Glaucoma in diseases classified elsewhere; I50.9 Heart failure, unspecified; I11.0 Hypertensive heart disease with heart failure; J44.9 Chronic obstructive pulmonary disease, unspecified; E78.5 Hyperlipidemia, unspecified; D64.9 Anemia, unspecified; G47.33 Obstructive sleep apnea (adult) (pediatric); E66.01 Morbid (severe) obesity due to excess calories; Z68.41 Body mass index [BMI] 40.0-44.9, adult; Z87.891 Personal history of nicotine dependence; Z79.85 Long-term (current) use of injectable non-insulin antidiabetic drugs; Z79.01 Long term (current) use of anticoagulants; Z79.84 Long term (current) use of oral hypoglycemic drugs; Z79.82 Long term (current) use of aspirin
CPT/HCPCS: 36415; 51701; 80053; 81001; 82550; 85025; 96372; 99283; A9270; J1885

== ENCOUNTER 2022-12-18 08:23 | Emergency (ER) | payer OTHER, MEDICAID, SELFPAY ==
[2022-12-18 08:26] VITALS: BP 170/62; PULSE 67; RESP 18; TEMP 36.2; O2SAT 98
[2022-12-18 08:57] LABS: Appearance Urine Clear (Clear); Bilirubin Urine Negative (Negative); Blood Urine Trace-intact (Negative); Color Urine Yellow (Yellow); Glucose Urine UA 3+ mg/dL (Negative); Ketones Urine Negative (Negative); Leukocyte Esterase Ur Negative LEU/UL (Negative); Nitrate Urine Negative (Negative); Protein Urine Trace mg/dL (Negative); Specific Grav Ur 1.015 (1.001-1.035); Urobilinogen Urine 0.2 mg/dL (<2.0)
[2022-12-18 09:02] LABS: Add Urine Microscopic? YES; Mucus Urine Rare /lpf; RBC Urine 0-2 /hpf (0-2); Squamous Epithelial Cell Urine Occasional /hpf (Few); WBC Urine 0-3 /hpf
[2022-12-18] MEDS: KETOROLAC 15 MG/ML VIAL (*BKC) IV PUSH (09:31)
--- NOTE | 2022-12-18 09:32 | ED.BACK ---
HPI - Back Pain/Injury General Chief Complaint: Back Pain/Injury Stated Complaint: back/leg pain, noncompliant with lasix Time Seen by Provider: 12/18/22 08:53 History of Present Illness HPI Narrative: Patient is a 77-year-old female with history of osteoarthritis, currently living at home with her son, here for evaluation of chronic pain. Patient states that she has chronic pain in her hips and low back due to arthritis. She takes tramadol for this, states that this morning she was in so much pain she was unable to get out of bed. No trauma or obvious injury. She called EMS for assistance and they brought her to the ED because she was unable to walk due to pain. She was here 3 days ago for the same complaint, had a complete work-up including lab work. She was able to ambulate after receiving Toradol. Patient states that she adamantly does not want to go to an assisted living facility. She sees pain management and actually saw them not too long ago. Related Data Home Medications Medication Instructions Recorded Confirmed rivaroxaban 2.5 mg tablet (Xarelto) 2.5 mg PO BID 10/10/19 08/04/22 timolol maleate 0.5 % once daily 1 drop ophthalmic (eye) Q12H 10/10/19 08/04/22 eye drops aspirin 81 mg chewable tablet 81 mg PO DAILY 01/12/20 08/04/22 (Maoy Chewable Low Dose Aspirin) acetaminophen 500 mg tablet 500 mg PO Q6H 02/07/21 08/04/22 (Tylenol Extra Strength) lancets 30 gauge (Advanced Travel 10/21/21 08/04/22 Lancets) Allergies Allergy/AdvReac Type Severity Reaction Status Date / Time No Known Allergies Allergy Unknown Verified 12/18/22 08:44 Review of Systems Review of Systems: Gen: Denies fevers or chills Eyes: Denies eye pain or visual change ENT: Denies congestion Respiratory: Denies shortness of breath or cough CV: Denies chest pain or palpitations GI: Denies abdominal pain nausea, emesis or diarrhea : denies burning, urgency, frequency or hematuria Musculoskeletal: Reports back pain Neuro: Denies numbness, tingling, weakness or focal weakness Skin: Denies rash Except as documented, all other systems reviewed and negative PMFSH Past Medical History Medical History Arthritis Benign essential hypertension Chronic obstructive pulmonary disease, unspecified COVID-19 vaccine series completed Generalized weakness History of tobacco abuse Hyperlipidemia, unspecified Hypertensive heart disease with heart failure Hyponatremia 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 Morbid obesity with BMI of 50.0-59.9, adult Normocytic anemia DIPTI (obstructive sleep apnea) Poor historian Positive colorectal cancer screening using Cologuard test Primary open angle glaucoma (POAG) of both eyes, moderate stage Primary osteoarthritis of both knees PVD (peripheral vascular disease) Screening mammogram, encounter for Type 2 diabetes mellitus with diabetic autonomic neuropathy, with long-term current use of insulin Surgical History Surgical History Gallbladder & bile duct stone with obstruction S/P tonsillectomy and adenoidectomy Family History Family History Sibling Family history of primary malignant neoplasm of liver Family history of malignant neoplasm of breast in first degree relative Patient's sister is Patient's brother is Mother Family history of malignant neoplasm of breast in first degree relative Patient's mother is Family history of malignant neoplasm Father Patient's father is Social History Social History Smoking packs per day: 1.5 Smoking cigarettes per day: 30.0 Years smoked: 25 Smoking pack-years: 37.50 Smoking status: Former smoker Tobacco type: cigarettes Second hand tobacco smoke exposure: No Smoking
[2022-12-18] MEDS: HYDROcodone/acetaminophen (*CRX) 5-325 MG TABLET 1 TAB PO (10:59)
[2022-12-18 11:01] VITALS: BP 130/62; PULSE 75; RESP 18; TEMP 36.2; O2SAT 100
== END 2022-12-18 13:00 | disposition home or self-care (01) ==
PROVIDERS: Emergency Medicine; Emergency Provider Physician Assistant; PCP Internal Medicine
DX: G89.29 Other chronic pain (principal); M16.0 Bilateral primary osteoarthritis of hip; M47.816 Spondylosis without myelopathy or radiculopathy, lumbar region; M17.0 Bilateral primary osteoarthritis of knee; J44.9 Chronic obstructive pulmonary disease, unspecified; E78.5 Hyperlipidemia, unspecified; I11.0 Hypertensive heart disease with heart failure; I50.9 Heart failure, unspecified; G47.33 Obstructive sleep apnea (adult) (pediatric); E11.43 Type 2 diabetes mellitus with diabetic autonomic (poly)neuropathy; E11.39 Type 2 diabetes mellitus with other diabetic ophthalmic complication; H40.1132 Primary open-angle glaucoma, bilateral, moderate stage; H42 Glaucoma in diseases classified elsewhere; E66.01 Morbid (severe) obesity due to excess calories; Z68.41 Body mass index [BMI] 40.0-44.9, adult; Z79.01 Long term (current) use of anticoagulants; Z79.82 Long term (current) use of aspirin; Z79.85 Long-term (current) use of injectable non-insulin antidiabetic drugs; Z79.84 Long term (current) use of oral hypoglycemic drugs
CPT/HCPCS: 81001; 96374; 99284; A9270; J1885

== ENCOUNTER 2022-12-20 07:09 | Emergency (ER) | payer OTHER, MEDICAID, SELFPAY ==
[2022-12-20 07:28] VITALS: BP 151/71; PULSE 67; RESP 18; TEMP 36.4; O2SAT 98
[2022-12-20] MEDS: KETOROLAC 15 MG/ML VIAL (*BKC) IV PUSH (07:49)
[2022-12-20 07:53] LABS: Basophils Percent Auto 0.7 % (0.2-1.2); Eosinophils Absolute Auto 0.1 K/mm3 (0-0.3); Eosinophils Percent Auto 2.2 % (0-4.4); Hematocrit 34.4 % (37.0-47.0); Hemoglobin 11.1 g/dL (12.0-15.0); Immature Granulocyte Absolute 0.02 K/mm3 (0.00-0.031); Immature Granulocyte Percent A 0.3 % (0-0.5); Lymphocytes Absolute Auto 0.93 K/mm3 (0.9-3.2); Mean Corpuscular HGB Conc 32.3 g/dl (32-36); Mean Corpuscular Hemoglobin 30.4 pg (26-34); Mean Corpuscular Volume 94.2 fl (80-100); Mean Platelet Volume 9.5 fl (7.4-10.4); Monocytes Absolute Auto 0.6 K/mm3 (0.1-0.6); Monocytes Percent Auto 9.6 % (2.6-8.5); Neutrophils Absolute Auto 4.1 K/mm3 (1.3-6.7); Neutrophils Percent Auto 71.2 % (45.5-73.1); Platelet Count Result 186 k/mm3 (150-375); Red Blood Count 3.65 M/mm3 (4.2-5.4); White Blood Count 5.8 K/mm3 (4.5-10.0)
[2022-12-20 07:54] LABS: Appearance Urine Slightly Cloudy (Clear); Bilirubin Urine Negative (Negative); Blood Urine Trace-intact (Negative); Color Urine Light Yellow (Yellow); Glucose Urine UA 3+ mg/dL (Negative); Ketones Urine 2+ mg/dL (Negative); Leukocyte Esterase Ur Negative LEU/UL (Negative); Nitrate Urine Negative (Negative); Protein Urine Trace mg/dL (Negative); Specific Grav Ur 1.015 (1.001-1.035); Urobilinogen Urine 0.2 mg/dL (<2.0); pH Urine 7.5 (5.0-9.0)
[2022-12-20 08:04] LABS: Alanine Aminotransferase 15 U/L (6-35); Alkaline Phosphatase 118 U/L (38-126); Anion Gap 6 mmol/L (8-16); Aspartate Amino Transferase 22 U/L (14-36); Bacteria Urine Trace /hpf; Bilirubin,Total 0.9 mg/dL (0.2-1.3); Blood Urea Nitrogen 19 mg/dL (7-17); Calcium 8.5 mg/dL (8.4-10.2); Carbon Dioxide 29 mmol/L (22-30); Chloride 103 mmol/L (98-107); Estimated Glomerular Filt Rate > 60; Glucose 162 mg/dL (65-110); Mucus Urine Rare /lpf; Potassium 4.7 mmol/L (3.4-5.0); Sodium 138 mmol/L (137-145); Squamous Epithelial Cell Urine Many /hpf (Few); WBC Urine 0-3 /hpf
[2022-12-20 08:18] LABS: Add Urine Microscopic? YES
--- NOTE | 2022-12-20 09:22 | ED.GENADULT ---
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 Patient reports she woke up this morning and sat up to get out of bed. She then went to stand up on the floor before reaching the floor she felt as if she was too weak to get up. Patient ambulates with a walker and it was not readily available. Patient reports she has chronic body aches related to arthritis. She is having some achiness in her right ankle today. No redness or swelling. No trauma. No fevers chills or sweats. No chest pain or chest pressure. Patient has not yet taken anything for her discomfort today. Related Data Home Medications Medication Instructions Recorded Confirmed rivaroxaban 2.5 mg tablet (Xarelto) 2.5 mg PO BID 10/10/19 08/04/22 timolol maleate 0.5 % once daily 1 drop ophthalmic (eye) Q12H 10/10/19 08/04/22 eye drops aspirin 81 mg chewable tablet 81 mg PO DAILY 01/12/20 08/04/22 (Mayo Chewable Low Dose Aspirin) acetaminophen 500 mg tablet 500 mg PO Q6H 02/07/21 08/04/22 (Tylenol Extra Strength) lancets 30 gauge (Advanced Travel 10/21/21 08/04/22 Lancets) Allergies Allergy/AdvReac Type Severity Reaction Status Date / Time No Known Allergies Allergy Unknown Verified 12/20/22 07:34 Review of Systems Review of Systems: All systems reviewed & are unremarkable except as noted in HPI and below Constitutional: Constitutional: Denies chills, Reports fatigue and Denies fever(s) ENT: Denies nasal congestion and Denies sore throat Cardiovascular: Cardiovascular: Denies chest pain and Denies rapid heart rate Gastrointestinal: Gastrointestinal: Denies abdominal pain, Denies nausea and Denies vomiting Musculoskeletal: Musculoskeletal: Reports myalgias, Reports arthralgias and Denies joint swelling Integumentary/Breasts: Skin/Breast: Denies erythema and Denies rash PMFSH Past Medical History Medical History Arthritis Benign essential hypertension Chronic obstructive pulmonary disease, unspecified COVID-19 vaccine series completed Generalized weakness History of tobacco abuse Hyperlipidemia, unspecified Hypertensive heart disease with heart failure Hyponatremia longterm use of drug Morbid obesity with BMI of 50.0-59.9, adult Normocytic anemia DIPTI (obstructive sleep apnea) Poor historian Positive colorectal cancer screening using Cologuard test Primary open angle glaucoma (POAG) of both eyes, moderate stage Primary osteoarthritis of both knees PVD (peripheral vascular disease) Screening mammogram, encounter for Type 2 diabetes mellitus with diabetic autonomic neuropathy, with long-term current use of insulin Surgical History Surgical History Gallbladder & bile duct stone with obstruction S/P tonsillectomy and adenoidectomy Family History Family History Sibling Family history of primary malignant neoplasm of liver Family history of malignant neoplasm of breast in first degree relative Patient's sister is Patient's brother is Mother Family history of malignant neoplasm of breast in first degree relative Patient's mother is Family history of malignant neoplasm Father Patient's father is Social History Social History Smoking packs per day: 1.5 Smoking cigarettes per day: 30.0 Years smoked: 25 Smoking pack-years: 37.50 Smoking status: Former smoker Tobacco type: cigarettes Second hand tobacco smoke exposure: No Smoking end date: 11/02/05 Alcohol intake: former Substance use: never [place]
--- NOTE | 2022-12-20 09:34 | PC.NURSE ---
Pt was able to walk good with walker, good steady gait and balance.
--- NOTE | 2022-12-20 09:38 | PC.NURSE ---
Per EDP Dr. Kovacs patient was asked to walk. This tech got a walker and was able to get her to walk to the door and back without difficulty. RN and MD made aware.
[2022-12-20 10:03] VITALS: BP 128/45; PULSE 74; RESP 18; O2SAT 100
== END 2022-12-20 10:07 | disposition home or self-care (01) ==
PROVIDERS: Emergency Provider Emergency Medicine
DX: R53.1 Weakness (principal); J44.9 Chronic obstructive pulmonary disease, unspecified; E78.5 Hyperlipidemia, unspecified; I11.0 Hypertensive heart disease with heart failure; I50.9 Heart failure, unspecified; E11.51 Type 2 diabetes mellitus with diabetic peripheral angiopathy without gangrene; E11.43 Type 2 diabetes mellitus with diabetic autonomic (poly)neuropathy; E11.39 Type 2 diabetes mellitus with other diabetic ophthalmic complication; H42 Glaucoma in diseases classified elsewhere; H40.1132 Primary open-angle glaucoma, bilateral, moderate stage; M17.0 Bilateral primary osteoarthritis of knee; G47.33 Obstructive sleep apnea (adult) (pediatric); E66.01 Morbid (severe) obesity due to excess calories; Z68.42 Body mass index [BMI] 45.0-49.9, adult; Z87.891 Personal history of nicotine dependence; Z79.82 Long term (current) use of aspirin; Z79.85 Long-term (current) use of injectable non-insulin antidiabetic drugs; Z79.01 Long term (current) use of anticoagulants; Z79.84 Long term (current) use of oral hypoglycemic drugs
CPT/HCPCS: 36415; 80053; 81001; 85025; 96374; 99284; J1885

== ENCOUNTER 2022-12-25 10:47 | Observation (INO) | payer OTHER, MEDICAID, SELFPAY ==
[2022-12-25] VITALS (15 sets, daily range): BP systolic 101–141; BP diastolic 53–95; PULSE 67–87; RESP 13–23; TEMP 36.7; O2SAT 95–99
[2022-12-25 12:47] LABS: Basophils Percent Auto 0.6 % (0.2-1.2); Eosinophils Absolute Auto 0.1 K/mm3 (0-0.3); Eosinophils Percent Auto 2.4 % (0-4.4); Hematocrit 32.8 % (37.0-47.0); Hemoglobin 10.7 g/dL (12.0-15.0); Immature Granulocyte Absolute 0.02 K/mm3 (0.00-0.031); Immature Granulocyte Percent A 0.4 % (0-0.5); Lymphocytes Absolute Auto 1.09 K/mm3 (0.9-3.2); Lymphocytes Percent Auto 20.3 % (18.3-44.2); Mean Corpuscular HGB Conc 32.6 g/dl (32-36); Mean Corpuscular Hemoglobin 30.8 pg (26-34); Mean Corpuscular Volume 94.5 fl (80-100); Mean Platelet Volume 9.4 fl (7.4-10.4); Monocytes Absolute Auto 0.4 K/mm3 (0.1-0.6); Monocytes Percent Auto 7.8 % (2.6-8.5); Neutrophils Absolute Auto 3.7 K/mm3 (1.3-6.7); Neutrophils Percent Auto 68.5 % (45.5-73.1); Platelet Count Result 188 k/mm3 (150-375); Red Blood Count 3.47 M/mm3 (4.2-5.4); White Blood Count 5.4 K/mm3 (4.5-10.0)
[2022-12-25 13:05] LABS: Alanine Aminotransferase 14 U/L (6-35); Albumin Level 3.8 g/dL (3.5-5.1); Alkaline Phosphatase 113 U/L (38-126); Anion Gap 6 mmol/L (8-16); Aspartate Amino Transferase 19 U/L (14-36); Bilirubin,Total 0.7 mg/dL (0.2-1.3); Blood Urea Nitrogen 19 mg/dL (7-17); Calcium 8.2 mg/dL (8.4-10.2); Carbon Dioxide 27 mmol/L (22-30); Chloride 100 mmol/L (98-107); Estimated Glomerular Filt Rate > 60; Glucose 158 mg/dL (65-110); Sodium 133 mmol/L (137-145)
[2022-12-25 13:22] LABS: Influenza A QL RT-PCR Negative (Negative); Influenza B QL RT-PCR Negative (Negative); RSV RNA, RT-PCR Negative (Negative); SARS-CoV-2 RNA PCR Negative
--- NOTE | 2022-12-25 13:35 | ED.GENADULT ---
HPI - General Adult General Chief complaint: Recheck/Abnormal Lab/Rx Stated complaint: joint pain shoulders/legs-chronic history Time Seen by Provider: 12/25/22 11:58 History of Present Illness HPI narrative: 77-year-old female presenting to the emergency department for evaluation of generalized weakness. Patient was seen on Thursday for similar symptoms and patient had a negative work-up at that time. Patient states yesterday she was able to participate in her physical therapy but when she attempted to get out of bed today that she had increased generalized pain and generalized weakness. Patient denies any new falls or injuries. Patient denies any associated chest pain or shortness of breath. Patient does take tramadol for pain control. Related Data Home Medications Medication Instructions Recorded Confirmed rivaroxaban 2.5 mg tablet (Xarelto) 2.5 mg PO BID 10/10/19 08/04/22 timolol maleate 0.5 % once daily 1 drop ophthalmic (eye) Q12H 10/10/19 08/04/22 eye drops aspirin 81 mg chewable tablet 81 mg PO DAILY 01/12/20 08/04/22 (Mayo Chewable Low Dose Aspirin) acetaminophen 500 mg tablet 500 mg PO Q6H 02/07/21 08/04/22 (Tylenol Extra Strength) lancets 30 gauge (Advanced Travel 10/21/21 08/04/22 Lancets) Allergies Allergy/AdvReac Type Severity Reaction Status Date / Time No Known Allergies Allergy Unknown Verified 12/25/22 11:05 Review of Systems Review of Systems: CONSTITUTIONAL: Generalized weakness EYES: Denies visual changes, redness, or discharge. ENT: Denies rhinorrhea, congestion, sore throat, or otalgia. CARDIOVASCULAR: Denies chest pain, palpitations, or edema. RESPIRATORY: Denies cough or dyspnea. GASTROINTESTINAL: Denies abdominal pain, nausea, vomiting, or diarrhea. GENITOURINARY: Denies dysuria or hematuria. SKIN: Denies rash or itching. MUSCULOSKELETAL: Denies back pain, joint pain, or myalgia. NEUROLOGIC: Denies headache, numbness, or weakness. [facility] Past Medical History Medical History Arthritis Benign essential hypertension Chronic obstructive pulmonary disease, unspecified COVID-19 vaccine series completed Generalized weakness History of tobacco abuse Hyperlipidemia, unspecified Hypertensive heart disease with heart failure Hyponatremia [facility]P use of drug Morbid obesity with BMI of 50.0-59.9, adult Normocytic anemia DIPTI (obstructive sleep apnea) Poor historian Positive colorectal cancer screening using Cologuard test Primary open angle glaucoma (POAG) of both eyes, moderate stage Primary osteoarthritis of both knees PVD (peripheral vascular disease) Screening mammogram, encounter for Type 2 diabetes mellitus with diabetic autonomic neuropathy, with long-term current use of insulin Surgical History Surgical History Gallbladder & bile duct stone with obstruction S/P tonsillectomy and adenoidectomy Family History Family History Sibling Family history of primary malignant neoplasm of liver Family history of malignant neoplasm of breast in first degree relative Patient's sister is Patient's brother is Mother Family history of malignant neoplasm of breast in first degree relative Patient's mother is Family history of malignant neoplasm Father Patient's father is Social History Social History (Updated 12/25/22 @ 19:29 by Cassidy Aguilera NP) Social History: lives with son and dog. 2 children. retired Smoking packs per day: 1.5 Smoking cigarettes per day: 30.0 Years smoked: 25 Smoking pack-years: 37.50 Smoking status: Former smoker Tobacco type: cigarettes Second hand tobacco smoke exposure: No Smoking end date: 11/02/05 Alcohol intake: former Substance use: never Substance use type: does not use Livin
[2022-12-25] MEDS: traMADol HCL (*CRX) 50 MG TABLET PO (16:28)
--- NOTE | 2022-12-25 18:09 | PC.NURSE ---
Pt assisted to bedside commode. Required max assist of 3 to complete. MD aware.
--- NOTE | 2022-12-25 19:26 | PM.IMHP ---
H&P: HPI History of Present Illness Date/Time: 12/25/22 19:26 Chief Complaint: Chronic pain shoulders and legs. Narrative: This is a 77-year-old female patient who came to the emergency room complaints of generalized weakness. The patient stated she is having difficulty walking. She has severe discomfort to her shoulders her knees and hips. Patient was in able to get of bed or participate physical therapy. She had increased generalized weakness. She denies any recent falls or injuries. However she has multiple bruises to both of her arms and abrasion to her left elbow that is red. She denies any fever chills. Her H&H is 10.7 and 32.8 which is down from 5 days ago 11.1 and 34.4. Her sodium is 133. Glucose is 150. Influenza A/B RSV and COVID are negative. The patient was given tramadol in the emergency room. Her urine appears to be a contaminate she has many urine squamous epithelial. The patient is being admitted to inpatient status on 12/25/2022. Review of Systems Review of Systems: See HPI All systems reviewed & are unremarkable except as noted in HPI and below Constitutional: Constitutional: Reports as per HPI and Reports no additional constitutional complaints Eyes: Eyes: Reports as per HPI and Reports no additional eye complaints ENT: Reports system reviewed and no additional complaints, except as documented and Reports Normal hearing present Cardiovascular: Cardiovascular: Reports no additional cardiovascular complaints Respiratory: Respiratory: Reports no additional respiratory complaints and Reports no additional respiratory complaints Gastrointestinal: Gastrointestinal: Reports as per HPI and Reports no additional gastrointestinal complaints Musculoskeletal: Musculoskeletal: Reports no additional musculoskeletal complaints Integumentary/Breasts: Skin/Breast: Reports system reviewed and no additional complaints, except as docu and Reports as per HPI Neurologic: Reports system reviewed and no additional complaints, except as documented, Reports as per HPI and Reports Normal hearing present Psychiatric: Psychiatric: Reports no additional psychiatric complaints and Reports as per HPI Endocrine: Endocrine: Reports no additional endocrine complaints Hematologic/Lymphatic: Hematologic/Lymphatic: Reports no additional hematologic/lymphatic complaints Allergic/Immunologic: Allergic/Immunologic: Reports no additional allergic/immunologic complaints [facility] Past Medical History Medical History Arthritis Benign essential hypertension Chronic obstructive pulmonary disease, unspecified COVID-19 vaccine series completed Generalized weakness History of tobacco abuse Hyperlipidemia, unspecified Hypertensive heart disease with heart failure 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 Morbid obesity with BMI of 50.0-59.9, adult Normocytic anemia DIPTI (obstructive sleep apnea) Poor historian Positive colorectal cancer screening using Cologuard test Primary open angle glaucoma (POAG) of both eyes, moderate stage Primary osteoarthritis of both knees PVD (peripheral vascular disease) Screening mammogram, encounter for Type 2 diabetes mellitus with diabetic autonomic neuropathy, with long-term current use of insulin Surgical History Surgical History (Updated 12/26/22 @ 01:26 by Cassidy Aguilera NP) Cataract extraction status Gallbladder & bile duct stone with obstruction S/P arterial stent S/P tonsillectomy and adenoidectomy Family History Family History Sibling Family history of primary malignant neoplasm of liver Family history of malignant neoplasm of breast in first degree relative Patient's sister is Patient's brother is Mother Family history of malignant neoplasm of breast in first degree relative Patient's mother is Family history of malignant neoplasm Father Deceas
[2022-12-25 19:31] LABS: Influenza A QL RT-PCR Negative (Negative); Influenza B QL RT-PCR Negative (Negative); RSV RNA, RT-PCR Negative (Negative); SARS-CoV-2 RNA PCR Negative
--- NOTE | 2022-12-25 21:38 | PC.NURSE ---
This patient, Desirae Parham, was admitted to 3 Medical Room 346-01. Patient/family oriented to hospital policies and general routines including ID bracelet, bed and alarms, visiting hours, pain management, procedures, bathroom and other care routines, personal items, smoking policy, room service/diet, and visiting hours. Information on how to activate the Rapid Response Team has been discussed. Patient/Family are encouraged to report perceived risks to care and to ask questions if they do not understand what they are told or what they should do. Pt has no IV access ER states she his her for placement however pt denies needing Rehab and plans on going home.
[2022-12-26] MEDS: traMADol HCL (*CRX) 50 MG TABLET PO ×3 (02:20→20:02)
[2022-12-26 05:40] LABS: Basophils Percent Auto 0.3 % (0.2-1.2); Eosinophils Absolute Auto 0.1 K/mm3 (0-0.3); Eosinophils Percent Auto 1.7 % (0-4.4); Hematocrit 32.7 % (37.0-47.0); Hemoglobin 10.4 g/dL (12.0-15.0); Immature Granulocyte Absolute 0.03 K/mm3 (0.00-0.031); Immature Granulocyte Percent A 0.5 % (0-0.5); Lymphocytes Absolute Auto 1.01 K/mm3 (0.9-3.2); Lymphocytes Percent Auto 16.7 % (18.3-44.2); Mean Corpuscular HGB Conc 31.8 g/dl (32-36); Mean Corpuscular Volume 94.2 fl (80-100); Mean Platelet Volume 9.3 fl (7.4-10.4); Monocytes Absolute Auto 0.6 K/mm3 (0.1-0.6); Monocytes Percent Auto 9.3 % (2.6-8.5); Neutrophils Absolute Auto 4.3 K/mm3 (1.3-6.7); Neutrophils Percent Auto 71.5 % (45.5-73.1); Platelet Count Result 191 k/mm3 (150-375); Red Blood Count 3.47 M/mm3 (4.2-5.4); Red Cell Distribution Width 12.9 % (11.5-14.5); White Blood Count 6.1 K/mm3 (4.5-10.0)
[2022-12-26 05:47] LABS: Lactic Acid Reflex 0.7 mmol/L (0.7-2.0)
[2022-12-26 05:50] LABS: Alanine Aminotransferase 12 U/L (6-35); Albumin Level 3.6 g/dL (3.5-5.1); Alkaline Phosphatase 116 U/L (38-126); Anion Gap 5 mmol/L (8-16); Aspartate Amino Transferase 19 U/L (14-36); Bilirubin,Total 0.6 mg/dL (0.2-1.3); Blood Urea Nitrogen 15 mg/dL (7-17); Calcium 8.2 mg/dL (8.4-10.2); Carbon Dioxide 28 mmol/L (22-30); Chloride 102 mmol/L (98-107); Estimated Glomerular Filt Rate > 60; Glucose 140 mg/dL (65-110); Magnesium 1.8 mg/dL (1.6-2.3); Potassium 3.9 mmol/L (3.4-5.0); Sodium 135 mmol/L (137-145)
[2022-12-26 06:00] VITALS: BP 136/66; PULSE 84; RESP 20; TEMP 37; O2SAT 99
[2022-12-26 07:13] LABS: Thyroid Stimulating Hormone Reflex 0.329 uIU/mL (0.465-4.68)
[2022-12-26 08:35] LABS: Glucose Point of Care 90 mg/dl (65-105)
[2022-12-26 09:14] LABS: Free T4 Free Thyroxine Reflex 1.95 ng/dL (0.78-2.19)
[2022-12-26] MEDS: APIXABAN 2.5 MG TABLET BY MOUTH ×2 (09:14→20:02)
[2022-12-26] MEDS: FUROSEMIDE 40 MG TABLET PO (09:19)
[2022-12-26] MEDS: CALCIUM CARBONATE (OSCAL) 500 MG TABLET PO ×2 (09:19→17:27)
[2022-12-26] MEDS: ASPIRIN 81 MG CHEWABLE TABLET PO (09:19)
[2022-12-26] MEDS: EMPAGLIFLOZIN 10 MG TABLET PO (09:19)
[2022-12-26] MEDS: lisinopriL 10 MG TABLET PO (09:19)
[2022-12-26] MEDS: ATORVASTATIN 40 MG TABLET 80 MG PO (09:19)
[2022-12-26] MEDS: TIMOLOL MALEATE 0.5% OP SOLN 5 ML BOTTLE 1 DROP EACH EYE ×2 (09:20→20:02)
[2022-12-26] MEDS: MUPIROCIN 2% OINT 22 GM TUBE 1 APPLIC TOPICAL ×3 (09:20→17:27)
[2022-12-26 09:29] VITALS: BP 143/56; PULSE 83; RESP 14; O2SAT 100
--- NOTE | 2022-12-26 09:56 | PM.IMPN ---
Progress Note: A&P Assessment and Plan (1) General weakness: Code(s): R53.1 - Weakness Status: Acute Assessment and Plan: Likely secondary to overall physical deconditioning worsened by osteoarthritis Appreciate PT/OT eval Implement fall precautions Check B12 and folate TSH slightly low which could contribute, however T4 is normal therefore unlikely Could have muscle weakness from statin, however seems unlikely as patient complains more of joint discomfort than muscle weakness, therefore will continue statin at this time. LFTs stable Encourage ambulation with assistance May need to consider rehab placement as patient is unable to get up on her own at home (2) Chronic shoulder pain: Qualifiers: Laterality: bilateral Qualified Code(s): M25.511 - Pain in right shoulder; M25.512 - Pain in left shoulder; G89.29 - Other chronic pain Code(s): M25.519 - Pain in unspecified shoulder; G89.29 - Other chronic pain Status: Acute Assessment and Plan: Patient has osteoarthritis of the bilateral shoulders Most recent x-rays from 09/03/2021 reviewed No acute changes, no. 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 Home metformin is on hold Blood sugars are reasonably controlled at this time. Continue to monitor and adjust insulin regimen as needed (5) Benign essential hypertension: Code(s): I10 - Essential (primary) hypertension Status: Acute Assessment and Plan: Blood pressures are stable. Continue home lisinopril and furosemide Monitor BP trends (6) DIPTI (obstructive sleep apnea): Code(s): G47.33 - Obstructive sleep apnea (adult) (pediatric) Status: Acute Assessment and Plan: Continue home CPAP (7) Abnormal TSH: Code(s): R79.89 - Other specified abnormal findings of blood chemistry Status: Acute Assessment and Plan: TSH is low at 0.329. T4 is within normal limits T3 is pending Will need repeat TSH with reflex as an outpatient in 4 weeks Subjective Date/time seen: 12/26/22 09:56 Interval history: Date of service: 12/26/2022 Desirae Parham is a 77-year-old female with a history of COPD, DIPTI on CPAP, hypertension, hyperlipidemia, arthritis, type 2 diabetes, and several other medical problems who is seen in follow-up for generalized weakness. Patient states that she has had leg and knee pain that has been more bothersome to her and she is having a hard time getting up. Sounds as though she is feeling weak in her upper body as well and not able to push herself up. Currently she endorses 10/10 leg pain, however she does appear comfortable and able to carry on conversation without any distraction. States that her pain improves the tramadol which she has been taking at home with relief. She typically uses a walker at home and lives at home with her son. She denies any joint swelling, redness, or drainage. She has no abdominal pain, nausea, vomiting, fever, chills, shortness of breath, cough, or chest pain. States she had trouble breathing last night d
[2022-12-26 10:45] LABS: Creatine Kinase 22 U/L (30-135)
[2022-12-26 11:54] LABS: Folic Acid 17.1 ng/mL (2.76->20)
[2022-12-26 12:27] LABS: Glucose Point of Care 169 mg/dl (65-105)
[2022-12-26 13:26] LABS: Total Triiodothyronine (T3) 0.99 NG/ML (0.97-1.69)
[2022-12-26 14:00] VITALS: BP 144/67; PULSE 77; RESP 18; TEMP 36.9; O2SAT 99
[2022-12-26 17:28] LABS: Glucose Point of Care 230 mg/dl (65-105)
[2022-12-26] MEDS: INSULIN ASPART (*BKC) 100 UNITS/ML SUB-Q (17:29)
[2022-12-26] MEDS: WATER FOR IRRIGATION, STERILE 1,000 ML BOTTLE 1000 ML (20:55)
[2022-12-26 21:25] VITALS: RESP 20; O2SAT 93
[2022-12-26 21:42] VITALS: BP 123/56; PULSE 67; RESP 22; TEMP 36.6; O2SAT 97
[2022-12-26 22:10] LABS: Glucose Point of Care 196 mg/dl (65-105)
[2022-12-27 05:44] VITALS: BP 140/75; PULSE 72; RESP 20; TEMP 36.6; O2SAT 99
[2022-12-27 07:00] LABS: Anion Gap 8 mmol/L (8-16); Blood Urea Nitrogen 19 mg/dL (7-17); Calcium 9.1 mg/dL (8.4-10.2); Carbon Dioxide 30 mmol/L (22-30); Chloride 98 mmol/L (98-107); Estimated Glomerular Filt Rate > 60; Glucose 181 mg/dL (65-110); Potassium 4.2 mmol/L (3.4-5.0); Sodium 136 mmol/L (137-145)
[2022-12-27 07:01] LABS: Hematocrit 37.8 % (37.0-47.0); Hemoglobin 12.2 g/dL (12.0-15.0); Mean Corpuscular HGB Conc 32.3 g/dl (32-36); Mean Corpuscular Hemoglobin 30.3 pg (26-34); Mean Platelet Volume 9.3 fl (7.4-10.4); Platelet Count Result 205 k/mm3 (150-375); Red Blood Count 4.02 M/mm3 (4.2-5.4); Red Cell Distribution Width 12.9 % (11.5-14.5); White Blood Count 5.9 K/mm3 (4.5-10.0)
[2022-12-27 08:12] LABS: Glucose Point of Care 161 mg/dl (65-105)
[2022-12-27] MEDS: EMPAGLIFLOZIN 10 MG TABLET PO (08:43)
[2022-12-27] MEDS: ASPIRIN 81 MG CHEWABLE TABLET PO (08:43)
[2022-12-27] MEDS: lisinopriL 10 MG TABLET PO (08:44)
[2022-12-27] MEDS: FUROSEMIDE 40 MG TABLET PO (08:44)
[2022-12-27] MEDS: CYANOCOBALAMIN 1,000 MCG TABLET 1000 MCG PO (08:44)
[2022-12-27] MEDS: ATORVASTATIN 40 MG TABLET 80 MG PO (08:44)
[2022-12-27] MEDS: APIXABAN 2.5 MG TABLET BY MOUTH (08:44)
[2022-12-27 08:45] VITALS: PULSE 72; RESP 20; O2SAT 99
[2022-12-27] MEDS: TIMOLOL MALEATE 0.5% OP SOLN 5 ML BOTTLE 1 DROP EACH EYE (08:45)
[2022-12-27] MEDS: MUPIROCIN 2% OINT 22 GM TUBE 1 APPLIC TOPICAL ×2 (08:45→12:43)
[2022-12-27] MEDS: CALCIUM CARBONATE (OSCAL) 500 MG TABLET PO (08:45)
[2022-12-27 09:50] VITALS: O2SAT 99
[2022-12-27 11:54] LABS: Glucose Point of Care 399 mg/dl (65-105)
--- NOTE | 2022-12-27 11:56 | P.DS_ITS ---
DS: Admitting Diagnosis Discharge Date 12/27/22 Admitting Diagnosis weakness DS: Discharge Diagnosis Discharge Diagnosis (1) General weakness: Code(s): R53.1 - Weakness Status: Acute Assessment and Plan: likely 2/2 B12 deficiency, will replete today and d/c on injections + oral (2) Chronic shoulder pain: Qualifiers: Laterality: bilateral Qualified Code(s): M25.511 - Pain in right shoulder; M25.512 - Pain in left shoulder; G89.29 - Other chronic pain Code(s): M25.519 - Pain in unspecified shoulder; G89.29 - Other chronic pain Status: Acute (3) Anemia: Code(s): D64.9 - Anemia, unspecified Status: Chronic (4) Diabetes: Qualifiers: Diabetes mellitus complication detail: with peripheral angiopathy wi thout gangrene Diabetes mellitus complication status: with circulatory complication Diabetes mellitus penitentiary insulin use: without terminal computer operator use Diabetes mellitus type: type 2 Qualified Code(s): E11.51 - Type 2 diabetes mellitus with diabetic peripheral angiopathy without gangrene Code(s): E11.9 - Type 2 diabetes mellitus without complications Status: Acute (5) Benign essential hypertension: Code(s): I10 - Essential (primary) hypertension Status: Acute (6) DIPTI (obstructive sleep apnea): Code(s): G47.33 - Obstructive sleep apnea (adult) (pediatric) Status: Acute (7) Abnormal TSH: Code(s): R79.89 - Other specified abnormal findings of blood chemistry Status: Acute DS: Summary Hospital Course Hospital Course: Likely secondary to overall physical deconditioning worsened by osteoarthritis * Appreciate PT/OT eval * Implement fall precautions * Check B12 and folate * TSH slightly low which could contribute, however T4 is normal therefore unlikely * Could have muscle weakness from statin, however seems unlikely as patient complains more of joint discomfort than muscle weakness, therefore will continue statin at this time.? LFTs stable * Encourage ambulation with assistance * May need to consider rehab placement as patient is unable to get up on her own at home Patient has osteoarthritis of the bilateral shoulders * Most recent x-rays from 09/03/2021 reviewed * No acute changes, no.? Analgesics as needed for pain control, heat and ice as comfortable * PT/OT Chronic anemia, H&H consistent with baseline * No evidence of bleeding * Continue to monitor H&H Last A1c is 8.6 * Continue Accu-Cheks, sliding scale insulin, and hypoglycemic protocol * Continue home Jardiance.? Home metformin is on hold * Blood sugars are reasonably controlled at this time.? Continue to monitor and adjust insulin regimen as needed Blood pressures are stable. * Continue home lisinopril and furosemide * Monitor BP trends TSH is low at? 0.329.? T4 is within normal limits * T3 is pending * Will need repeat TSH with reflex as an outpatient in 4 weeks PT/OT recommending HHC at d/c, arranged by care coordination. Time Spent with Patient Time attestation: Total time spent providing and/or coordinating discharge services: DS: Data Data Completed and Pending Labs on day of discharge: Labs from last 24 hours 12/27/22 12/27/22 12/27/22 11:46 08:05 06:25 WBC RBC Hgb Hct MCV MCH MCHC RDW Plt Count MPV Sodium 136 L Potassium 4.2 Chloride 98
--- NOTE | 2022-12-27 11:56 | PM.DS ---
DS: Admitting Diagnosis Discharge Date 12/27/22 Admitting Diagnosis weakness DS: Discharge Diagnosis Discharge Diagnosis (1) General weakness: Code(s): R53.1 - Weakness Status: Acute Assessment and Plan: likely 2/2 B12 deficiency, will replete today and d/c on injections + oral (2) Chronic shoulder pain: Qualifiers: Laterality: bilateral Qualified Code(s): M25.511 - Pain in right shoulder; M25.512 - Pain in left shoulder; G89.29 - Other chronic pain Code(s): M25.519 - Pain in unspecified shoulder; G89.29 - Other chronic pain Status: Acute (3) Anemia: Code(s): D64.9 - Anemia, unspecified Status: Chronic (4) Diabetes: Qualifiers: Diabetes mellitus complication detail: with peripheral angiopathy without gangrene Diabetes mellitus complication status: with circulatory complication Diabetes mellitus local intermodal truck driver insulin use: without local intermodal truck driver use Diabetes mellitus type: type 2 Qualified Code(s): E11.51 - Type 2 diabetes mellitus with diabetic peripheral angiopathy without gangrene Code(s): E11.9 - Type 2 diabetes mellitus without complications Status: Acute (5) Benign essential hypertension: Code(s): I10 - Essential (primary) hypertension Status: Acute (6) DIPTI (obstructive sleep apnea): Code(s): G47.33 - Obstructive sleep apnea (adult) (pediatric) Status: Acute (7) Abnormal TSH: Code(s): R79.89 - Other specified abnormal findings of blood chemistry Status: Acute DS: Summary Hospital Course Hospital Course: Likely secondary to overall physical deconditioning worsened by osteoarthritis Appreciate PT/OT eval Implement fall precautions Check B12 and folate TSH slightly low which could contribute, however T4 is normal therefore unlikely Could have muscle weakness from statin, however seems unlikely as patient complains more of joint discomfort than muscle weakness, therefore will continue statin at this time.? LFTs stable Encourage ambulation with assistance May need to consider rehab placement as patient is unable to get up on her own at home Patient has osteoarthritis of the bilateral shoulders Most recent x-rays from 09/03/2021 reviewed No acute changes, no.? Analgesics as needed for pain control, heat and ice as comfortable PT/OT Chronic anemia, H&H consistent with baseline No evidence of bleeding Continue to monitor H&H Last A1c is 8.6 Continue Accu-Cheks, sliding scale insulin, and hypoglycemic protocol Continue home Jardiance.? Home metformin is on hold Blood sugars are reasonably controlled at this time.? Continue to monitor and adjust insulin regimen as needed Blood pressures are stable. Continue home lisinopril and furosemide Monitor BP trends TSH is low at? 0.329.? T4 is within normal limits T3 is pending Will need repeat TSH with reflex as an outpatient in 4 weeks PT/OT recommending HHC at d/c, arranged by care coordination. Time Spent with Patient Time attestation: Total time spent providing and/or coordinating discharge services: DS: Data Data Completed and Pending Labs on day of discharge: Labs from last 24 hours 12/27/22 12/27/22 12/27/22 11:46 08:05 06:25 WBC RBC Hgb Hct MCV MCH MCHC RDW Plt Count MPV Sodium 136 L Potassium 4.2 Chloride 98 Carbon Dioxide 30 Anion Gap 8 BUN 19 H Creatinine 0.80 Estim Creat Clear Calc Not Reportable Estimated GFR > 60 Glucose 181 H POC Capillary Glucose 399 H 161 H Calcium 9.1 Total T3 12/27/22 12/26/22 12/26/22 06:25 22:08 17:26 WBC 5.9 RBC 4.02 L Hgb 12.2 Hct 37.8 MCV 94.0 MCH 30.3 MCHC 32.3 RDW 12.9 Plt Count 205 MPV 9.3 Sodium Potassium Chloride Carbon Dioxide Anion Gap BUN Creatinine Estim Creat Clear Calc Estimated GFR Glucose POC Capillary Glucose 196 H 230 H
[2022-12-27 12:37] LABS: Glucose Point of Care 321 mg/dl (65-105)
[2022-12-27] MEDS: INSULIN ASPART (*BKC) 100 UNITS/ML SUB-Q (12:38)
[2022-12-27] MEDS: CYANOCOBALAMIN INJ 1,000 MCG/ML VIAL 1000 MCG IM (12:50)
== END 2022-12-27 14:25 | disposition home health service (06) ==
LOC: ANHED 18:31 → ANH3MED 21:24
PROVIDERS: Nurse Practitioner; Admitting Provider Chiropractor; Emergency Provider Emergency Medicine; PCP Nurse Practitioner Family; Visit Provider Physician Assistant
DX: R53.1 Weakness (principal); G89.29 Other chronic pain; M25.512 Pain in left shoulder; M25.511 Pain in right shoulder; D64.9 Anemia, unspecified; E11.43 Type 2 diabetes mellitus with diabetic autonomic (poly)neuropathy; E11.51 Type 2 diabetes mellitus with diabetic peripheral angiopathy without gangrene; I11.0 Hypertensive heart disease with heart failure; I50.9 Heart failure, unspecified; J44.9 Chronic obstructive pulmonary disease, unspecified; E78.5 Hyperlipidemia, unspecified; G47.33 Obstructive sleep apnea (adult) (pediatric); Z99.89 Dependence on other enabling machines and devices; R79.89 Other specified abnormal findings of blood chemistry; E87.1 Hypo-osmolality and hyponatremia; M19.90 Unspecified osteoarthritis, unspecified site; Z20.822 Contact with and (suspected) exposure to COVID-19; I49.3 Ventricular premature depolarization; E66.01 Morbid (severe) obesity due to excess calories; Z68.41 Body mass index [BMI] 40.0-44.9, adult; Z79.4 Long term (current) use of insulin; H40.1130 Primary open-angle glaucoma, bilateral, stage unspecified; M17.0 Bilateral primary osteoarthritis of knee; Z87.891 Personal history of nicotine dependence; Z79.01 Long term (current) use of anticoagulants; Z79.82 Long term (current) use of aspirin; Z79.1 Long term (current) use of non-steroidal anti-inflammatories (NSAID); Z79.891 Long term (current) use of opiate analgesic; Z79.899 Other long term (current) drug therapy
CPT/HCPCS: 36415; 80048; 80053; 82550; 82607; 82746; 82948; 83605; 83735; 84439; 84443; 84480; 85025; 85027; 87637; 97161; 97165; 99285; A9270; G0378; J1815; J3420

== ENCOUNTER 2022-12-28 13:13 | Observation (INO) | payer OTHER, MEDICAID, SELFPAY ==
[2022-12-28] VITALS (9 sets, daily range): BP systolic 113–142; BP diastolic 47–69; PULSE 63–76; RESP 15–23; TEMP 36.1–36.8; O2SAT 94–100
--- NOTE | ~2022-12-28 | XR_ITS ---
Left Knee Technique: AP, lateral, and oblique views were obtained. Clinical History: Swelling Findings: No fracture or dislocation is seen. Osseous alignment is anatomic. Joint spaces are preserv ed without degenerative or erosive change. There is advanced medial compartment degenerative change w ith osteophyte formation and joint space narrowing. There is moderate spurring of the lateral and pat ellofemoral compartments. Small joint effusion is seen. Impression: Tricompartmental osteoarthritis, severe in the medial compartment, moderate in the lateral and patell ofemoral compartments. Small joint effusion. Reviewed, dictated and finalized at location M. T HARVEST WORKER Impression: Tricompartmental osteoarthritis, severe in the medial compartment, moderate in the lateral and patellofemoral compartments. Small joint effusion.
--- NOTE | ~2022-12-28 | CT_ITS ---
EXAMINATION: CT brain wo con DATE: 12/28/2022 16:45 INDICATION: fall, weakness . TECHNIQUE: Computed tomography (CT) of the head was performed without intravenous contrast. The mA wa s adjusted according to patient size. Iterative reconstruction technique was employed. The dose-lengt h product was 605.33 mGy-cm. COMPARISON: None. FINDINGS: No acute intracranial hemorrhage or extra-axial fluid collection. No hydrocephalus, mass, or herniation. No acute ischemic infarct. Unremarkable dural venous sinus attenuation. No acute osseous abnormality. Partial opacification and air-fluid level within the sphenoid sinuses, the remaining aerated spaces a re clear. Moderate atrophy and chronic white matter change. Atherosclerotic intracranial calcification. Right t emporal encephalomalacia Bilateral lens replacements. IMPRESSION: No acute intracranial process. Reviewed, dictated and finalized at location K. CARRIER
--- NOTE | ~2022-12-28 | XR_ITS ---
AP and lateral views of the left hip Clinical history: Pain Findings: No acute fracture or dislocation is seen. Osseous alignment is anatomic. There is severe le ft hip joint osteoarthritis, joint space narrowing and osteophyte formation, as well as mild reactive sclerosis. Soft tissues are unremarkable. Impression: Severe osteoarthritis of the left hip joint. No acute fracture identified. Reviewed, dictated and finalized at location . PRESIDENT PROCESS Impression: Severe osteoarthritis of the left hip joint. No acute fracture identified.
--- NOTE | ~2022-12-28 | XR_ITS ---
EXAM: XR pelvis 1-2V DATE: 12/28/2022 17:22 HISTORY: fall . COMPARISON: None available. FINDINGS: Exam limited by portable technique and body habitus. No fracture or dislocation. Lumbar deg enerative disc disease. Severe left and mild right hip osteoarthritis. Possible osteitis pubis. IMPRESSION: Limited examination. No definite acute osseous finding in the pelvis. Reviewed, dictated and finalized at location K. Y PROCESSOR IMPRESSION: Limited examination. No definite acute osseous finding in the pelvi s.
--- NOTE | ~2022-12-28 | XR_ITS ---
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 RESULT: Lines, tubes, and devices: Cholecystectomy clips. Lungs and pleura: Low lung volume in the lateral view, with motion artifact. Senescent change. Subse gmental bibasilar opacities. Cardiomediastinal silhouette: Stable. Other: No acute osseous or upper abdominal finding. IMPRESSION: Motion and inspiration limited lateral view. Bibasilar subsegmental lower lung opacities may represen t atelectasis/consolidation. Reviewed, dictated and finalized at location K. CLUB REPAIRER IMPRESSION: Motion and inspiration limited lateral view. Bibasilar subsegmental lower lung opacities may represent atelectasis/consolidation.
--- NOTE | 2022-12-28 16:16 | ECG_ITS ---
Measurements Intervals [place] Rate: 73 P: -60 UT: 121 QRS: 16 QRSD: 94 T: 31 QT: 275 QTc: 303 Interpretive Statements ECTOPIC ATRIAL RHYTHM WITH OCCASIONAL VENTRICULAR PREMATURE COMPLEXES BASELINE ARTIFACT LOW QRS VOLTAGE IN PRECORDIAL LEADS NONSPECIFIC T-WAVE ABNORMALITY ABNORMAL ECG COMPARED TO ECG 10/14/2022 08:44:29 T-WAVE ABNORMALITY NOW PRESENT Electronically Signed On 12-29-2022 14:01:33 TALLOW MAKER by Omid Harden M.D.
--- NOTE | 2022-12-28 16:33 | PC.NURSE ---
Pt to CT after arival to room
--- NOTE | 2022-12-28 16:54 | ED.WEAKNESS ---
HPI - Weakness General Chief complaint: Weakness <Chelita Vasquez PA-C - Last Filed: 12/28/22 18:43> Stated complaint: weakness <TEMO Rivera Last Filed: 12/28/22 18:43> Time Seen by Provider: 12/28/22 16:17 <Chelita Vasquez PA-C - Last Filed: 12/28/22 18:43> Source: patient and EMS <TEMO Rivera Last Filed: 12/28/22 18:43> Mode of arrival: EMS <TEMO Rivera Last Filed: 12/28/22 18:43> Limitations: no limitations <Chelita Vasquez PA-C - Last Filed: 12/28/22 18:43> History of Present Illness HPI Narrative: This is a 77 year old female that presents to the ER after a ground level fall today. Reports she was trying to get into her sons car and lost her balance and fell onto her bottom. She thinks she might have hit her head. She did not lose consciousness. Does not really have any focal complaints. Was just discharged yesterday for a short stay for generalized weakness. Was discharged with home health. Denies fever, neck pain, back pain, chest pain, shortness of breath, cough, vision changes, vomiting, or numbness. <hCelita Vasquez PA-C - Last Filed: 12/28/22 18:43> Related Data Home medications: Home Medications Medication Instructions Recorded Confirmed rivaroxaban 2.5 mg tablet (Xarelto) 2.5 mg PO BID 10/10/19 12/25/22 timolol maleate 0.5 % once daily 1 drop ophthalmic (eye) Q12H 10/10/19 12/25/22 eye drops aspirin 81 mg chewable tablet 81 mg PO DAILY 01/12/20 12/25/22 (Mayo Chewable Low Dose Aspirin) acetaminophen 500 mg tablet 500 mg PO Q6H PRN Pain 02/07/21 12/25/22 (Tylenol Extra Strength) albuterol sulfate 2.5 mg/3 mL 2.5 mg inhalation Q6H PRN 12/25/22 12/25/22 (0.083 %) solution for nebulization Shortness Of Breath Or Wheezing atorvastatin 80 mg tablet 80 mg PO DAILY 12/25/22 12/25/22 furosemide 40 mg tablet 40 mg PO DAILY 12/25/22 12/25/22 lisinopril 10 mg tablet 10 mg PO DAILY 12/25/22 12/25/22 <Chelita Vasquez PA-C - Last Filed: 12/28/22 18:43> Allergies/Adverse reactions: Allergies Allergy/AdvReac Type Severity Reaction Status Date / Time No Known Allergies Allergy Unknown Verified 12/28/22 16:58 <Chelita Vasquez PA-C - Last Filed: 12/28/22 18:43> Review of Systems Review of Systems: CONSTITUTIONAL: Denies fever EYES: Denies visual changes CARDIOVASCULAR: Denies chest pain RESPIRATORY: Denies cough or dyspnea. GASTROINTESTINAL: Denies abdominal pain, nausea, vomiting GENITOURINARY: Denies dysuria MUSCULOSKELETAL: Denies back pain, joint pain, or myalgia. NEUROLOGIC: Denies headache, numbness <Chelita Vasquez PA-C - Last Filed: 12/28/22 18:43> All systems reviewed & are unremarkable except as noted in HPI and below <Chelita Vasquez PA-C - Last Filed: 12/28/22 18:43> [facility] Past Medical History Medical History: Medical History (Updated 12/28/22 @ 18:43 by Chelita Vasquez PA-C) Arthritis Chronic obstructive pulmonary disease Congestive heart failure Former smoker Glaucoma Hyperlipidemia Hypertension Normocytic anemia Obstructive sleep apnea Peripheral vascular disease Primary osteoarthritis of both knees Pulmonary embolism Type 2 diabetes mellitus with diabetic autonomic neuropathy, with long-term current use of insulin <Chelita Vasquez PA-C - Last Filed: 12/28/22 18:43> Surgical History Surgical History: Surgical History (Updated 12/28/22 @ 18:37 by Coby Ervin PA-C) Gallbladder & bile duct stone with obstruction History of bilateral cataract extraction History of colonoscopy with polypectomy History of tonsillectomy and adenoidectomy History of vascular surgery Right leg stent. <Chelita Vasquez PA-C - Last Filed: 12/28/22 18:43> Family History Family History: Family History Sibling Family history of primary malignant neoplasm of liver Family history of malignant neoplasm of breast in
[2022-12-28 17:20] LABS: Basophils Percent Auto 0.3 % (0.2-1.2); Eosinophils Absolute Auto 0.2 K/mm3 (0-0.3); Eosinophils Percent Auto 2.2 % (0-4.4); Hematocrit 37.1 % (37.0-47.0); Hemoglobin 11.9 g/dL (12.0-15.0); Immature Granulocyte Absolute 0.02 K/mm3 (0.00-0.031); Immature Granulocyte Percent A 0.2 % (0-0.5); Lymphocytes Percent Auto 14.2 % (18.3-44.2); Mean Corpuscular HGB Conc 32.1 g/dl (32-36); Mean Corpuscular Hemoglobin 30.4 pg (26-34); Mean Corpuscular Volume 94.9 fl (80-100); Mean Platelet Volume 9.4 fl (7.4-10.4); Monocytes Percent Auto 10.9 % (2.6-8.5); Neutrophils Absolute Auto 6.6 K/mm3 (1.3-6.7); Neutrophils Percent Auto 72.2 % (45.5-73.1); Platelet Count Result 230 k/mm3 (150-375); Red Blood Count 3.91 M/mm3 (4.2-5.4); Red Cell Distribution Width 13.2 % (11.5-14.5); White Blood Count 9.2 K/mm3 (4.5-10.0)
[2022-12-28 17:25] LABS: Appearance Urine Clear (Clear); Bacteria Urine None Seen /hpf; Bilirubin Urine Negative (Negative); Blood Urine Negative (Negative); Color Urine Yellow (Yellow); Glucose Urine UA 3+ mg/dL (Negative); Hyaline Casts Urine Present /lpf; Ketones Urine Trace mg/dL (Negative); Leukocyte Esterase Ur Negative LEU/UL (Negative); Mucus Urine Present /lpf; Nitrate Urine Negative (Negative); Protein Urine Trace mg/dL (Negative); RBC Urine 0-2 /hpf (0-2); Specific Grav Ur 1.031 (1.001-1.035); Squamous Epithelial Cell Urine None seen /hpf (Few); Urobilinogen Urine 0.2 mg/dL (<2.0); WBC Urine 0-5 /hpf
[2022-12-28 17:31] LABS: Add Urine Microscopic? YES
[2022-12-28 17:32] LABS: Alanine Aminotransferase 17 U/L (6-35); Albumin Level 4.1 g/dL (3.5-5.1); Alkaline Phosphatase 131 U/L (38-126); Anion Gap 7 mmol/L (8-16); Aspartate Amino Transferase 24 U/L (14-36); Bilirubin,Total 0.7 mg/dL (0.2-1.3); Blood Urea Nitrogen 38 mg/dL (7-17); Calcium 9.2 mg/dL (8.4-10.2); Carbon Dioxide 30 mmol/L (22-30); Chloride 95 mmol/L (98-107); Estimated Glomerular Filt Rate 37; Glucose 222 mg/dL (65-110); Potassium 4.5 mmol/L (3.4-5.0); Sodium 132 mmol/L (137-145)
[2022-12-28 18:03] LABS: Creatine Kinase 48 U/L (30-135)
[2022-12-28] MEDS: SODIUM CHLORIDE 0.9% IV 500 ML 999 ML IV CONT (18:16)
--- NOTE | 2022-12-28 18:45 | PM.IMHP ---
H&P: HPI History of Present Illness Date/Time: 12/28/22 18:45 Chief Complaint: Fall, weakness. Narrative: This is a pleasant 77-year-old female with hypertension, hyperlipidemia, diabetes, peripheral vascular disease, sleep apnea, COPD, history of PE on chronic anticoagulation, and other comorbidities who presented to the emergency department via EMS for evaluation after a fall and weakness. Patient provides the following history. She was just discharged from the hospital yesterday after being admitted with the same diagnosis. She was found to be B12 deficient and was started on supplementation. It looks like she was working with Physical therapy and they recommended home health with PT/OT. Today she and her son went to adventist and while leaving the [employer] and trying to get into the car she lost her balance and fell down onto her buttocks. She denies antecedent symptoms prior to the fall and states it was purely mechanical. There was no head trauma or loss of consciousness. She thought she heard a pop in her left hip but she does not have any significant pain aside from her chronic arthritic pain in that hip. EMS brought her in for evaluation. Her vital signs have been stable since arrival. Labs showed a increasing creatinine to 1.40 which is up from 0.80 on labs drawn yesterday morning. Her sodium was a bit low and BUN is a bit elevated as well. She says she has not had much to eat or drink in the past 24 hours for unclear reasons. She otherwise has no complaints. Review of Systems Review of Systems: Twelve systems were reviewed. No fever, chills, or sweats. No recent cold or flu symptoms. No sick contacts. She denies chest pain, pleuritic pain, palpitations, and cough. No nausea, vomiting, diarrhea, or dysuria. CT of the head showed findings consistent with possible sinusitis though she denies symptoms of such. Except as documented, all other systems were reviewed and are negative. [facility] Past Medical History Medical History (Updated 12/28/22 @ 22:58 by Coby Ervin PA-C) Arthritis Chronic anticoagulation Chronic obstructive pulmonary disease Congestive heart failure Former smoker Glaucoma Hyperlipidemia Hypertension Normocytic anemia Obstructive sleep apnea Peripheral vascular disease Primary osteoarthritis of both knees Pulmonary embolism Type 2 diabetes mellitus with diabetic autonomic neuropathy, with long-term current use of insulin Surgical History Surgical History Gallbladder & bile duct stone with obstruction History of bilateral cataract extraction History of colonoscopy with polypectomy History of tonsillectomy and adenoidectomy History of vascular surgery Right leg stent. Family History Family History Sibling Family history of primary malignant neoplasm of liver Family history of malignant neoplasm of breast in first degree relative Patient's sister is Patient's brother is Mother Family history of malignant neoplasm of breast in first degree relative Patient's mother is Family history of malignant neoplasm Father Patient's father is Social History Social History (Updated 12/28/22 @ 22:55 by Coby Ervin PA-C) Social History: Surrogate medical decision maker: Nayeli Coles, marquise. Code status: Full code. Smoking packs per day: 2.5 Smoking cigarettes per day: 50.0 Years smoked: 40 Smoking pack-years: 100.00 Smoking status: Former smoker Tobacco type: cigarettes Second hand tobacco smoke exposure: No Smoking end date: 11/02/05 Alcohol intake: former Substance use: never Substance use type: does not use Lack of Transportation: No Lack of Food: Never True Current Housing: I Have Housing Concerned About Future Housing: No Difficulty Paying Gas/Electric Bills: No Difficulty Paying fo
[2022-12-28 18:51] LABS: Influenza A QL RT-PCR Negative (Negative); Influenza B QL RT-PCR Negative (Negative); SARS-CoV-2 RNA PCR Negative
--- NOTE | 2022-12-28 20:01 | ADMGEN ---
This patient, Desirae Parham, was admitted to 2 Medical Room 259-01. Patient/family oriented to hospital policies and general routines including ID bracelet, bed and alarms, visiting hours, pain management, procedures, bathroom and other care routines, personal items, smoking policy, room service/diet, and visiting hours. Information on how to activate the Rapid Response Team has been discussed. Patient/Family are encouraged to report perceived risks to care and to ask questions if they do not understand what they are told or what they should do.
[2022-12-28 20:09] LABS: Glucose Point of Care 148 mg/dl (65-105)
[2022-12-28] MEDS: HYDROmorphone HCL INJ (*CRX) 1 MG/ML SYR 0.5 MG IV PUSH (22:29)
[2022-12-29] MEDS: RIVAROXABAN 2.5 MG TABLET PO ×2 (00:20→09:35)
[2022-12-29] MEDS: TIMOLOL MALEATE 0.5% OP SOLN 5 ML BOTTLE 1 DROP EACH EYE ×2 (00:20→09:32)
[2022-12-29] MEDS: SODIUM CHLORIDE 0.9% IV 1,000 ML 100 ML IV CONT (00:21)
[2022-12-29] MEDS: CYANOCOBALAMIN INJ 1,000 MCG/ML VIAL 1000 MCG IM (00:21)
[2022-12-29] MEDS: WATER FOR IRRIGATION, STERILE 1,000 ML BOTTLE 1000 ML (00:21)
[2022-12-29 02:27] VITALS: PULSE 71; RESP 10; O2SAT 99
[2022-12-29 05:18] VITALS: BP 118/48; PULSE 73; RESP 18; TEMP 36.6; O2SAT 97
[2022-12-29 05:41] LABS: Basophils Percent Auto 0.5 % (0.2-1.2); Eosinophils Absolute Auto 0.2 K/mm3 (0-0.3); Eosinophils Percent Auto 3.5 % (0-4.4); Hematocrit 32.8 % (37.0-47.0); Hemoglobin 10.5 g/dL (12.0-15.0); Immature Granulocyte Absolute 0.02 K/mm3 (0.00-0.031); Immature Granulocyte Percent A 0.3 % (0-0.5); Lymphocytes Percent Auto 16.1 % (18.3-44.2); Mean Corpuscular Hemoglobin 30.2 pg (26-34); Mean Corpuscular Volume 94.3 fl (80-100); Mean Platelet Volume 9.7 fl (7.4-10.4); Monocytes Absolute Auto 0.7 K/mm3 (0.1-0.6); Monocytes Percent Auto 11.4 % (2.6-8.5); Neutrophils Absolute Auto 4.2 K/mm3 (1.3-6.7); Neutrophils Percent Auto 68.2 % (45.5-73.1); Platelet Count Result 219 k/mm3 (150-375); Red Blood Count 3.48 M/mm3 (4.2-5.4); White Blood Count 6.2 K/mm3 (4.5-10.0)
[2022-12-29 05:52] LABS: Anion Gap 5 mmol/L (8-16); Blood Urea Nitrogen 32 mg/dL (7-17); Calcium 8.6 mg/dL (8.4-10.2); Carbon Dioxide 30 mmol/L (22-30); Chloride 97 mmol/L (98-107); Estimated Glomerular Filt Rate 54; Glucose 186 mg/dL (65-110); Potassium 4.2 mmol/L (3.4-5.0); Sodium 132 mmol/L (137-145)
[2022-12-29] MEDS: HYDROcodone/acetaminophen (*CRX) 5-325 MG TABLET 1 TAB PO (06:03)
[2022-12-29 08:38] LABS: Glucose Point of Care 161 mg/dl (65-105)
[2022-12-29] MEDS: CALCIUM CARBONATE (OSCAL) 500 MG TABLET 600 MG PO ×2 (09:33→17:48)
[2022-12-29] MEDS: ATORVASTATIN 40 MG TABLET 80 MG PO (09:33)
[2022-12-29] MEDS: ASPIRIN 81 MG CHEWABLE TABLET PO (09:34)
[2022-12-29] MEDS: EMPAGLIFLOZIN 10 MG TABLET PO (09:34)
[2022-12-29] MEDS: lisinopriL 10 MG TABLET PO (09:34)
[2022-12-29] MEDS: CYANOCOBALAMIN 500 MCG TABLET PO (09:34)
[2022-12-29] MEDS: traMADol HCL (*CRX) 50 MG TABLET PO (09:47)
--- NOTE | 2022-12-29 11:15 | PM.DS ---
DS: Admitting Diagnosis Discharge Date 12/29/22 1115 Admitting Diagnosis Fall DS: Discharge Diagnosis Discharge Diagnosis (1) Fall from ground level: Code(s): W18.30XA - Fall on same level, unspecified, initial encounter Status: Acute (2) Acute kidney injury: Code(s): N17.9 - Acute kidney failure, unspecified Status: Acute (3) Generalized weakness: Code(s): R53.1 - Weakness Status: Acute (4) Physical deconditioning: Code(s): R53.81 - Other malaise Status: Acute (5) Type 2 diabetes mellitus with diabetic autonomic neuropathy, with long-term current use of insulin: Code(s): E11.43 - Type 2 diabetes mellitus with diabetic autonomic (poly)neuropathy; Z79.4 - exterminator (current) use of insulin Status: Acute (6) Hypertension: Code(s): I10 - Essential (primary) hypertension Status: Acute (7) Chronic anticoagulation: Code(s): Z79.01 - exterminator (current) use of anticoagulants Status: Acute (8) Chronic obstructive pulmonary disease: Code(s): J44.9 - Chronic obstructive pulmonary disease, unspecified Status: Acute (9) Congestive heart failure: Code(s): I50.9 - Heart failure, unspecified Status: Acute Plan The patient presented to the emergency department for evaluation of weakness and ground level fall as detailed in HPI. Labs, imaging, and all reports were personally reviewed. She states she lost her balance when using her cane to get in the car causing her to fall onto her buttocks. She denies antecedent symptoms prior to the fall and there was no head trauma or loss of consciousness. She does have some pain when raising the left leg off of the bed and no acute findings were noted on pelvic x-ray however will get dedicated hip films to rule out occult fracture. Fall precautions have been initiated. PT/OT consulted. With recurrent hospitalizations she may benefit from rehab before going home. Her creatinine is nearly double what it was on labs drawn just yesterday and she looks dry by labs and on exam. She will be judiciously hydrated overnight with close monitoring of volume status as she has a history of CHF. Avoid nephrotoxic agents. Bladder scan ordered to rule out urinary retention. Blood pressures were reviewed and they are stable. No findings to suggest COPD exacerbation. Random glucose was 148. Continue oral hypoglycemics. Initiate sliding scale insulin, Accu-Cheks, and hypoglycemic protocol. The rest of her home medications will be reviewed and resumed as appropriate. BUN/CR back up and currently at baseline. Home health is set up and ready to go. Xrays indicate further osteoarthritis, however, no fractures or breaks noted. Patient is stable for discharge. Continue Vit. B12 supplementation, and have patient follow up with primary at scheduled times. DS: Summary Hospital Course Hospital Course: This is a pleasant 77-year-old female with hypertension, hyperlipidemia, diabetes, peripheral vascular disease, sleep apnea, COPD, history of PE on chronic anticoagulation, and other comorbidities who presented to the emergency department via EMS for evaluation after a fall and weakness. Patient provides the following history. She was just discharged from the hospital 12/28/22 after being admitted with the same diagnosis. She was found to be B12 deficient and was started on supplementation. Physical therapy at last admission recommended home health with PT/OT. On 12/28/22 she and her son went to restoration[facility] and while leaving the restoration[facility] and trying to get into the car she lost her balance and fell down onto her buttocks. Hip and Knee xray shows no fractures. BUN/Cr elevated most likely from dehydration as she did not have any thing to eat and drink. After rehydration BUN/Cr are back to baseline. She continues to have no other complaints patient is stable for discharge at this time. Status at Discharge Functional status at d
[2022-12-29 12:13] LABS: Glucose Point of Care 298 mg/dl (65-105)
[2022-12-29] MEDS: INSULIN ASPART (*BKC) 100 UNITS/ML SUB-Q ×2 (12:26→17:48)
[2022-12-29 14:25] VITALS: BP 106/64; PULSE 78; RESP 18; TEMP 37; O2SAT 98
[2022-12-29 17:40] LABS: Glucose Point of Care 272 mg/dl (65-105)
== END 2022-12-29 18:55 | disposition home health service (06) ==
LOC: ANHED 18:43 → ANH2MED 18:54
PROVIDERS: Admitting Provider Chiropractor; Emergency Provider Physician Assistant; PCP Nurse Practitioner Family; Visit Provider Chiropractor
DX: R53.1 Weakness (principal); R53.81 Other malaise; W18.30XA Fall on same level, unspecified, initial encounter; N17.9 Acute kidney failure, unspecified; E11.43 Type 2 diabetes mellitus with diabetic autonomic (poly)neuropathy; I11.0 Hypertensive heart disease with heart failure; I50.9 Heart failure, unspecified; R06.02 Shortness of breath; M17.12 Unilateral primary osteoarthritis, left knee; M16.12 Unilateral primary osteoarthritis, left hip; J44.9 Chronic obstructive pulmonary disease, unspecified; Z98.62 Peripheral vascular angioplasty status; H40.9 Unspecified glaucoma; Z20.822 Contact with and (suspected) exposure to COVID-19; E78.5 Hyperlipidemia, unspecified; G47.33 Obstructive sleep apnea (adult) (pediatric); I73.9 Peripheral vascular disease, unspecified; R94.31 Abnormal electrocardiogram [ECG] [EKG]; Z87.891 Personal history of nicotine dependence; Z86.711 Personal history of pulmonary embolism; Z79.01 Long term (current) use of anticoagulants; Z79.51 Long term (current) use of inhaled steroids; Z79.82 Long term (current) use of aspirin; Z79.1 Long term (current) use of non-steroidal anti-inflammatories (NSAID); Z79.899 Other long term (current) drug therapy
CPT/HCPCS: 36415; 70450; 71046; 72170; 73502; 73562; 80048; 80053; 81001; 82550; 82948; 83735; 85025; 87636; 93005; 96361; 96372; 96374; 97161; 97166; 99285; A9270; G0378; J1170; J1815; J3420; J7030; J7040

== ENCOUNTER 2022-12-29 20:39 | Observation (INO) | payer OTHER, MEDICAID, SELFPAY ==
--- NOTE | ~2022-12-29 | XR_ITS ---
EXAM: XR knee RT min 4V, XR knee LT min 4V DATE: 12/29/2022 21:49 HISTORY: fall, pain . COMPARISON: X-ray left knee 12/28/2022, x-ray right knee 09/03/2021. FINDINGS: Decreased mineralization. No fracture or dislocation. No lytic or blastic lesion. Moderate right and severe left tricompartmental osteoarthritis. No erosion or periosteal change. Vascular bubba nts in the right SFA. Extensive vascular calcifications in the left leg. Trace right and moderate lef t knee joint effusions. IMPRESSION: No acute osseous finding in the knees. Reviewed, dictated and finalized at location K. [facility] ASSIST[facility] IMPRESSION: No acute osseous finding in the knees.
[2022-12-29 20:42] VITALS: BP 128/44; PULSE 82; RESP 19; TEMP 36.4; O2SAT 99
--- NOTE | 2022-12-29 21:41 | PC.NURSE ---
XY at bedside
[2022-12-29 21:44] VITALS: PULSE 81; RESP 16; O2SAT 100
[2022-12-29] MEDS: ACETAMINOPHEN 500 MG TABLET 1000 MG PO (21:44)
--- NOTE | 2022-12-29 22:39 | ED.FALL ---
HPI - Fall General Chief Complaint: Fall Stated Complaint: fall, B knee pain Time Seen by Provider: 12/29/22 21:05 History of Present Illness HPI Narrative: 77-year-old female with a history of CHF, COPD, OA, DIPTI, hypertension, hyperlipidemia, CAD reports for bilateral knee pain after she fell prior to arrival. Patient was just discharged from the hospital at 1930 after she was admitted yesterday for MARY. States she was attempting to get into the house, let go of her walker and tried to grab onto the handrails and the door frame. She then got her foot caught in the walker, causing her to fall on her knees. Denies loss of consciousness, hitting her head. Patient has been to the ED multiple times in the past month for falls and weakness. Today she is only complaining of bilateral knee pain and difficulty with range of motion. Patient reports taking tramadol at noon. She denies chest pain, vision changes, shortness of breath, dizziness, headache, focal numbness or weakness prior to the fall. Patient currently lives at home with her son who helps to take care of the patient. Son is at bedside and reports that he has to call EMS multiple times a day to help his mother up from falling. Related Data Home Medications Medication Instructions Recorded Confirmed rivaroxaban 2.5 mg tablet (Xarelto) 2.5 mg PO BID 10/10/19 12/28/22 timolol maleate 0.5 % once daily 1 drop ophthalmic (eye) Q12H 10/10/19 12/28/22 eye drops aspirin 81 mg chewable tablet 81 mg PO DAILY 01/12/20 12/28/22 (Mayo Chewable Low Dose Aspirin) acetaminophen 500 mg tablet 500 mg PO Q6H PRN Pain (Scale 02/07/21 12/28/22 (Tylenol Extra Strength) Score 1-3) albuterol sulfate 2.5 mg/3 mL 2.5 mg inhalation Q6H PRN 12/25/22 12/28/22 (0.083 %) solution for nebulization Shortness Of Breath Or Wheezing atorvastatin 80 mg tablet 80 mg PO DAILY 12/25/22 12/28/22 furosemide 40 mg tablet 40 mg PO DAILY 12/25/22 12/28/22 lisinopril 10 mg tablet 10 mg PO DAILY 12/25/22 12/28/22 hydrocodone 5 mg-acetaminophen 325 1 tablet PO Q8H PRN Pain (Scale 12/28/22 12/28/22 mg tablet Score 7-10) tramadol 50 mg tablet 50 mg PO Q6-8H PRN Pain (Scale 12/28/22 12/28/22 Score 4-6) Allergies Allergy/AdvReac Type Severity Reaction Status Date / Time No Known Allergies Allergy Unknown Verified 12/28/22 16:58 Review of Systems Review of Systems: CONSTITUTIONAL: Denies fever, chills EYES: Denies visual changes, redness, or discharge. ENT: Denies rhinorrhea, congestion, sore throat, or otalgia. CARDIOVASCULAR: Denies chest pain, palpitations, or edema. RESPIRATORY: Denies cough or dyspnea. GASTROINTESTINAL: Denies abdominal pain, nausea, vomiting, or diarrhea. GENITOURINARY: Denies dysuria or hematuria. SKIN: Denies rash or itching. MUSCULOSKELETAL: See HPI NEUROLOGIC: Denies headache, numbness, dizziness, or weakness. PSYCHIATRIC: Denies anxiety or depression. [facility] Past Medical History Medical History Arthritis Chronic anticoagulation Chronic obstructive pulmonary disease Congestive heart failure Former smoker Glaucoma Hyperlipidemia Hypertension Normocytic anemia Obstructive sleep apnea Peripheral vascular disease Primary osteoarthritis of both knees Pulmonary embolism Type 2 diabetes mellitus with diabetic autonomic neuropathy, with long-term current use of insulin Surgical History Surgical History Gallbladder & bile duct stone with obstruction History of bilateral cataract extraction History of colonoscopy with polypectomy History of tonsillectomy and adenoidectomy History of vascular surgery Right leg stent. Family History Family History Sibling Family history of primary malignant neoplasm of liver Family history of malignant neoplasm of breast in first degree relative Patient's siste
[2022-12-29 23:14] VITALS: BP 110/84; PULSE 80; RESP 18; O2SAT 98
[2022-12-30 01:24] LABS: Influenza A QL RT-PCR Negative (Negative); Influenza B QL RT-PCR Negative (Negative); SARS-CoV-2 RNA PCR Negative
[2022-12-30 01:36] VITALS: BP 126/56; PULSE 89; RESP 18; O2SAT 96
--- NOTE | 2022-12-30 03:17 | ADMGEN ---
This patient, Desirae Parham, was admitted to [facility] Room 331-02. Patient/family oriented to hospital policies and general routines including ID bracelet, bed and alarms, visiting hours, pain management, procedures, bathroom and other care routines, personal items, smoking policy, room service/diet, and visiting hours. Information on how to activate the Rapid Response Team has been discussed. Patient/Family are encouraged to report perceived risks to care and to ask questions if they do not understand what they are told or what they should do.
--- NOTE | 2022-12-30 03:17 | PC.NURSE ---
Pt alert to only self. Poor historian and unable to obtain much information. Pt is resistive to cares and treatment at this time. Pt is safe in bed, call light in place, bed alarm active, and frequent rounding.
--- NOTE | 2022-12-30 07:57 | PC.NURSE ---
Informed Dr. Sorenson that patient pulled out IV over night. Obtained order to discontinue fluids. No new IV placement needed.
[2022-12-30 13:36] VITALS: BMI 40.1
[2022-12-30 14:00] VITALS: BP 126/46; PULSE 88; RESP 18; TEMP 36.6; O2SAT 96
--- NOTE | 2022-12-30 14:12 | PM.IMHP ---
H&P: HPI History of Present Illness Date/Time: 12/30/22 14:12 Chief Complaint: Fall Narrative: this is a 77-year-old female with a history of CHF, COPD, OA, DIPTI, hypertension, hyperlipidemia, CAD who presents back to the hospital after getting discharged yesterday. She states that when she attempted to get into the house her leg got caught up in her walker or, she tried to grab onto the hand rails in the door frame but lost balance and fell on her knees. She denies hitting her head or loss of consciousness. She had several admissions in the past for fall and weakness. She had worked with therapy and was walking with a walker well and home health was arranged at the time discharge. She complained of bilateral knee pain. She also reports leg pain on the left side more so than the right. She also reports some urine incontinence which has been happening since past few weeks. She denies any chest pain or shortness of breath. No focal weakness. she is admitted for further evaluation possibly SNF placement Review of Systems Review of Systems: - CONSTITUTIONAL: Denies weight loss, fever and chills. - HEENT: Denies changes in vision and hearing - RESPIRATORY: Denies SOB and cough. - CV: Denies palpitations and CP. - GI: Denies abdominal pain, nausea, vomiting and diarrhea. - : Denies dysuria and urinary frequency. - MSK: Denies myalgia and complains of generalized joint pain. - SKIN: Denies rash and pruritus. - NEUROLOGICAL: Denies headache and syncope. - PSYCHIATRIC: Denies recent changes in mood. Denies anxiety and depression. [facility] Past Medical History Medical History Arthritis Chronic anticoagulation Chronic obstructive pulmonary disease Congestive heart failure Former smoker Glaucoma Hyperlipidemia Hypertension Normocytic anemia Obstructive sleep apnea Peripheral vascular disease Primary osteoarthritis of both knees Pulmonary embolism Type 2 diabetes mellitus with diabetic autonomic neuropathy, with long-term current use of insulin Surgical History Surgical History Gallbladder & bile duct stone with obstruction History of bilateral cataract extraction History of colonoscopy with polypectomy History of tonsillectomy and adenoidectomy History of vascular surgery Right leg stent. Family History Family History Sibling Family history of primary malignant neoplasm of liver Family history of malignant neoplasm of breast in first degree relative Patient's sister is Patient's brother is Mother Family history of malignant neoplasm of breast in first degree relative Patient's mother is Family history of malignant neoplasm Father Patient's father is Social History Social History Social History: Surrogate medical decision maker: Nayeli Coles, sibling. Code status: Full code. Smoking packs per day: 2.5 Smoking cigarettes per day: 50.0 Years smoked: 40 Smoking pack-years: 100.00 Smoking status: Unknown if ever smoked Tobacco type: cigarettes Second hand tobacco smoke exposure: No Smoking end date: 11/02/05 Alcohol intake: unknown Substance use: unknown Substance use type: unknown Lack of Transportation: No Lack of Food: Never True Current Housing: I Have Housing Concerned About Future Housing: No Difficulty Paying Gas/Electric Bills: No Difficulty Paying for Meds: No Currently Unemployed: No Education: Grade School Difficulty w/ Childcare or Family Care: No Living arrangements: with family Additional living arrangements comments: Lives in [place] with son and dog. She has 2 children. 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
[2022-12-30 17:23] LABS: Glucose Point of Care 276 mg/dl (65-105)
[2022-12-30] MEDS: RIVAROXABAN 2.5 MG TABLET PO (18:09)
[2022-12-30] MEDS: ASPIRIN 81 MG CHEWABLE TABLET PO (18:09)
[2022-12-30] MEDS: metFORMIN HCL 500 MG TABLET 1000 MG PO (18:10)
[2022-12-30] MEDS: CALCIUM CARBONATE (OSCAL) 500 MG TABLET PO (18:10)
[2022-12-30] MEDS: TIMOLOL MALEATE 0.5% OP SOLN 5 ML BOTTLE 1 DROP EACH EYE (20:28)
[2022-12-30 22:00] VITALS: BP 125/65; PULSE 75; RESP 14; TEMP 35.9; O2SAT 95
[2022-12-31] MEDS: HYDROcodone/acetaminophen (*CRX) 5-325 MG TABLET 1 TAB PO ×2 (03:44→16:23)
[2022-12-31 06:00] VITALS: BP 144/63; PULSE 72; RESP 18; TEMP 35.5; O2SAT 97
[2022-12-31] MEDS: CALCIUM CARBONATE (OSCAL) 500 MG TABLET PO ×2 (09:10→16:18)
[2022-12-31] MEDS: CYANOCOBALAMIN 500 MCG TABLET PO (09:10)
[2022-12-31] MEDS: RIVAROXABAN 2.5 MG TABLET PO ×2 (09:10→16:18)
[2022-12-31] MEDS: metFORMIN HCL 500 MG TABLET 1000 MG PO ×2 (09:10→16:17)
[2022-12-31] MEDS: EMPAGLIFLOZIN 10 MG TABLET PO (09:10)
[2022-12-31] MEDS: lisinopriL 10 MG TABLET PO (09:10)
[2022-12-31] MEDS: ATORVASTATIN 40 MG TABLET 80 MG PO (09:10)
[2022-12-31] MEDS: FUROSEMIDE 40 MG TABLET PO (09:10)
[2022-12-31] MEDS: TIMOLOL MALEATE 0.5% OP SOLN 5 ML BOTTLE 1 DROP EACH EYE ×2 (09:11→21:04)
--- NOTE | 2022-12-31 13:00 | PHAR ---
HOME MEDICATION VERIFIED BY PHARMACY: OZEMPIC (SEMAGLUTIDE) SUBQ INJECTION ADMINISTER 0.5MG SUBQ WEEKLY (WEDNESDAYS PER RN) [id number]
[2022-12-31 14:00] VITALS: BP 116/54; PULSE 78; RESP 17; TEMP 35.9; O2SAT 97
--- NOTE | 2022-12-31 14:41 | PM.IMPN ---
Progress Note: A&P Assessment and Plan (1) General weakness: Code(s): R53.1 - Weakness Status: Acute (2) Chronic shoulder pain: Qualifiers: Laterality: bilateral Qualified Code(s): M25.511 - Pain in right shoulder; M25.512 - Pain in left shoulder; G89.29 - Other chronic pain Code(s): M25.519 - Pain in unspecified shoulder; G89.29 - Other chronic pain Status: Acute (3) Anemia: Code(s): D64.9 - Anemia, unspecified Status: Chronic (4) Diabetes: Qualifiers: Diabetes mellitus type: type 2 Diabetes mellitus fci insulin use: without long wall shear operator use Diabetes mellitus complication status: with circulatory complication Diabetes mellitus complication detail: with peripheral angiopathy without gangrene Qualified Code(s): E11.51 - Type 2 diabetes mellitus with diabetic peripheral angiopathy without gangrene Code(s): E11.9 - Type 2 diabetes mellitus without complications Status: Acute (5) Benign essential hypertension: Code(s): I10 - Essential (primary) hypertension Status: Acute (6) DIPTI (obstructive sleep apnea): Code(s): G47.33 - Obstructive sleep apnea (adult) (pediatric) Status: Acute (7) Abnormal TSH: Code(s): R79.89 - Other specified abnormal findings of blood chemistry Status: Acute Plan 77-year-old female with a history of CHF, COPD, OA, DIPTI, hypertension, hyperlipidemia, CAD? who presents back to the hospital after getting discharged yesterday after a fall, needs placement. 1)ground level fall Has Bilateral knee pain:? X-ray with no bony injury moderate right and severe left tricompartmental osteoarthritis noted. Severe left hip osteoarthritis Advanced osteoarthritis of the glenohumeral and acromioclavicular joint Recurrent falls? multiple admissions for the same Generalized weakness? PT OT 2)COPD not in exacerbation.? Continue home ? Medications 3)Hypertension c/w home medication 4)Hyperlipidemia? on atorvastatin 5)Congestive heart failure? not in exacerbation.? Continue Lasix 6)Type 2 diabetes with diabetic neuropathy? continue SSI 7)History of PE on chronic anticoagulation 8)DVT prophylaxis on Xarelto 9)Code status full code 10)Disposition: Recurrent admissions, will need SNF placement Time Spent With Patient Time with patient: 15 - 25 minutes Subjective Date/time seen: 12/31/22 14:41 Interval history: no acute events overight Review of Systems Review of Systems: All systems reviewed & are unremarkable except as noted in HPI and below Exam Narrative: GENERAL: Well-appearing, well-nourished, and in no acute distress. HEAD: Normocephalic, atraumatic. EYES: PERRLA and EOMI. ENT: Nares clear, no rhinorrhea or epistaxis.? Mucous membranes moist.? NECK: Supple.? CHEST: Clear to auscultation.? No wheezes rales or rhonchi HEART: Regular rate and rhythm.? No murmur heard.? Normal peripheral pulses. ABDOMEN: Soft, nontender, nondistended, normal active bowel sounds. EXTREMITIES: no edema cyanosis? bilateral knee arthritis noted SKIN: Warm, dry, no rash. NEURO: No focal deficits.? PSYCH: Normal mood Objective Data Vital Signs Vital Signs: Vital Signs - 24 hr 12/30/22 20:00 12/30/22 22:00 12/31/22 06:00 Temperature 96.7 F L 96 F L Pulse Rate 75 72 Respiratory Rate 14 18 Blood Pressure 125/65 144/63 H Pulse Oximetry 95 97 Oxygen Delivery Room Air 12/31/22 14:00 Temperature 96.7 F L Pulse Rate 78 Respiratory Rate 17 Blood Pressure 116/54 L Pulse Oximetry 97 Oxygen Delivery Intake/Output Intake/Output: Intake & Output 12/28/22 12/29/22 12/30/22 12/31/22 23:59 23:59 23:59 23:59 Intake Total 1485 440 Balance 1485 440 Meds/Results Medications: Active Medications Generic Name Dose Route Start Last Admin Trade Name Freq PRN Reason Stop Dose Admin Hydrocodone Bitart/Acetaminophen 1 tab 12/30/22 14:01 12/31/22 03:44
--- NOTE | 2022-12-31 15:19 | PC.NURSE ---
On 12/31/22, the student, [ Brian Hoyt], provided care and completed [facility] documentation on this patient. I have reviewed the student's documentation and agree with the findings.
[2022-12-31 16:56] LABS: Glucose Point of Care 225 mg/dl (65-105)
[2022-12-31 21:29] LABS: Glucose Point of Care 358 mg/dl (65-105)
[2022-12-31 21:41] VITALS: BP 108/68; PULSE 79; RESP 24; TEMP 35.8; O2SAT 98
[2023-01-01] MEDS: HYDROcodone/acetaminophen (*CRX) 5-325 MG TABLET 1 TAB PO (03:24)
[2023-01-01 06:00] VITALS: BP 118/32; PULSE 75; RESP 14; TEMP 35.8; O2SAT 93
[2023-01-01 08:27] LABS: Glucose Point of Care 190 mg/dl (65-105)
[2023-01-01 09:16] LABS: Basophils Percent Auto 0.7 % (0.2-1.2); Eosinophils Absolute Auto 0.3 K/mm3 (0-0.3); Eosinophils Percent Auto 4.2 % (0-4.4); Hematocrit 35.5 % (37.0-47.0); Hemoglobin 11.2 g/dL (12.0-15.0); Immature Granulocyte Absolute 0.02 K/mm3 (0.00-0.031); Immature Granulocyte Percent A 0.3 % (0-0.5); Lymphocytes Absolute Auto 1.34 K/mm3 (0.9-3.2); Lymphocytes Percent Auto 22.5 % (18.3-44.2); Mean Corpuscular HGB Conc 31.5 g/dl (32-36); Mean Corpuscular Hemoglobin 29.8 pg (26-34); Mean Corpuscular Volume 94.4 fl (80-100); Mean Platelet Volume 9.4 fl (7.4-10.4); Monocytes Absolute Auto 0.6 K/mm3 (0.1-0.6); Monocytes Percent Auto 9.9 % (2.6-8.5); Neutrophils Absolute Auto 3.7 K/mm3 (1.3-6.7); Neutrophils Percent Auto 62.4 % (45.5-73.1); Platelet Count Result 245 k/mm3 (150-375); Red Blood Count 3.76 M/mm3 (4.2-5.4); Red Cell Distribution Width 12.8 % (11.5-14.5)
[2023-01-01 09:28] LABS: Anion Gap 5 mmol/L (8-16); Blood Urea Nitrogen 26 mg/dL (7-17); Calcium 8.8 mg/dL (8.4-10.2); Carbon Dioxide 31 mmol/L (22-30); Chloride 98 mmol/L (98-107); Estimated Glomerular Filt Rate > 60; Glucose 268 mg/dL (65-110); Potassium 4.2 mmol/L (3.4-5.0); Sodium 134 mmol/L (137-145)
[2023-01-01] MEDS: TIMOLOL MALEATE 0.5% OP SOLN 5 ML BOTTLE 1 DROP EACH EYE (09:38)
[2023-01-01] MEDS: CALCIUM CARBONATE (OSCAL) 500 MG TABLET PO (09:38)
[2023-01-01] MEDS: ATORVASTATIN 40 MG TABLET 80 MG PO (09:38)
[2023-01-01] MEDS: metFORMIN HCL 500 MG TABLET 1000 MG PO (09:38)
[2023-01-01] MEDS: lisinopriL 10 MG TABLET PO (09:38)
[2023-01-01] MEDS: RIVAROXABAN 2.5 MG TABLET PO (09:38)
[2023-01-01] MEDS: ASPIRIN 81 MG CHEWABLE TABLET PO (09:38)
[2023-01-01] MEDS: CYANOCOBALAMIN 500 MCG TABLET PO (09:39)
[2023-01-01] MEDS: FUROSEMIDE 40 MG TABLET PO (09:39)
[2023-01-01] MEDS: EMPAGLIFLOZIN 10 MG TABLET PO (09:39)
--- NOTE | 2023-01-01 09:51 | PM.IMPN ---
Progress Note: A&P Assessment and Plan (1) General weakness: Code(s): R53.1 - Weakness Status: Acute (2) Chronic shoulder pain: Qualifiers: Laterality: bilateral Qualified Code(s): M25.511 - Pain in right shoulder; M25.512 - Pain in left shoulder; G89.29 - Other chronic pain Code(s): M25.519 - Pain in unspecified shoulder; G89.29 - Other chronic pain Status: Acute (3) Anemia: Code(s): D64.9 - Anemia, unspecified Status: Chronic (4) Diabetes: Qualifiers: Diabetes mellitus complication detail: with peripheral angiopathy without gangrene Diabetes mellitus complication status: with circulatory complication Diabetes mellitus prison insulin use: without salvage determiner use Diabetes mellitus type: type 2 Qualified Code(s): E11.51 - Type 2 diabetes mellitus with diabetic peripheral angiopathy without gangrene Code(s): E11.9 - Type 2 diabetes mellitus without complications Status: Acute (5) Benign essential hypertension: Code(s): I10 - Essential (primary) hypertension Status: Acute (6) DIPTI (obstructive sleep apnea): Code(s): G47.33 - Obstructive sleep apnea (adult) (pediatric) Status: Acute (7) Abnormal TSH: Code(s): R79.89 - Other specified abnormal findings of blood chemistry Status: Acute Plan 77-year-old female with a history of CHF, COPD, OA, DIPTI, hypertension, hyperlipidemia, CAD? who presents back to the hospital after getting discharged yesterday after a fall, needs placement. 1)ground level fall Has Bilateral knee pain:? X-ray with no bony injury moderate right and severe left tricompartmental osteoarthritis noted. Severe left hip osteoarthritis Advanced osteoarthritis of the glenohumeral and acromioclavicular joint Recurrent falls? multiple admissions for the same Generalized weakness? PT OT saw the patient, recommend discharge patient to rehab 2)COPD not in exacerbation.? Continue home ? Medications 3)Hypertension c/w home medication 4)Hyperlipidemia? on atorvastatin 5)Congestive heart failure? not in exacerbation.? Continue Lasix 6)Type 2 diabetes with diabetic neuropathy? continue SSI 7)History of PE on chronic anticoagulation 8)DVT prophylaxis on Xarelto 9)Code status full code 10)Disposition: Recurrent admissions, will need SNF placement Subjective Date/time seen: 01/01/23 09:51 Interval history: I saw the patient today. Patient has general weakness, chronic muscle pain, no acute events overnight Review of Systems Review of Systems: All systems reviewed & are unremarkable except as noted in HPI and below Exam Narrative: GENERAL: Well-appearing, well-nourished, and in no acute distress. HEAD: Normocephalic, atraumatic. EYES: PERRLA and EOMI. ENT: Nares clear, no rhinorrhea or epistaxis.? Mucous membranes moist.? NECK: Supple.? CHEST: Clear to auscultation.? No wheezes rales or rhonchi HEART: Regular rate and rhythm.? No murmur heard.? Normal peripheral pulses. ABDOMEN: Soft, nontender, nondistended, normal active bowel sounds. EXTREMITIES: General weakness. no edema cyanosis? bilateral knee arthritis noted SKIN: Warm, dry, no rash. NEURO: No focal deficits.? Alert oriented PSYCH: Normal mood Objective Data Vital Signs Vital Signs: Vital Signs - 24 hr 12/31/22 14:00 12/31/22 21:41 01/01/23 06:00 Temperature 96.7 F L 96.5 F L 96.5 F L Pulse Rate 78 79 75 Respiratory Rate 17 24 H 14 Blood Pressure 116/54 L 108/68 118/32 L Pulse Oximetry 97 98 93 Intake/Output Intake/Output: Intake & Output 12/29/22 12/30/22 12/31/22 01/01/23 23:59 23:59 23:59 23:59 Intake Total 1485 880 550 Balance 1485 880 550 Meds/Results Medications: Active Medications Generic Name Dose Route Start Last Admin Trade Name Freq PRN Reason Stop Dose Admin Hydrocodone Bitart/Acetaminophen 1 tab 12/30/22 14:01 01/01/23 03:24 Hydrocodone/Acetaminophen (*C
--- NOTE | 2023-01-01 10:43 | PM.DS ---
DS: Admitting Diagnosis Discharge Date today Admitting Diagnosis General weakness, multiple falls, acute renal failure DS: Summary Hospital Course Reason for hospitalization: falls, acute renal failure Hospital Course: this is a 77-year-old female with a history of diastolic CHF, COPD, OA, DIPTI, hypertension, hyperlipidemia, CAD? who presents back to the hospital after getting discharged yesterday.? She states that when she attempted to get into the house her leg got caught up in her walker or, she tried to grab onto the hand rails in the door frame but lost balance and fell on her knees.? She denies hitting her head or loss of consciousness.? She had several admissions in the past for fall and weakness.? She had worked with therapy and was walking with a walker well and home health was arranged at the time discharge.? She complained of bilateral knee pain.? She also reports leg pain on the left side more so than the right.? She also reports some urine incontinence which has been happening since past few weeks.? She denies any chest pain or shortness of breath.? No focal weakness. ? she is admitted for further evaluation. During hospitalization, patient is found have osteoarthritis, patient has chronic pain. Patient is also found to have mild hyponatremia, acute renal failure. Patient received IV fluids. Acute renal failure has resolved. Peers echocardiogram shows normal EF. Patient has no sign of fluid overload. Hold oral Lasix now. During hospitalization, patient has general weakness, although is improving, patient still cannot take care of herself without assistance. Patient will be discharged to assisted for rehab. Patient will continue rest of the home medications. Status at Discharge Cognitive/behavioral status at discharge: Stable Time Spent with Patient Time attestation: Total time spent providing and/or coordinating discharge services: 35 mins DS: Data Data Completed and Pending Labs on day of discharge: Labs from last 24 hours 01/01/23 01/01/23 01/01/23 09:05 09:05 08:15 WBC 6.0 RBC 3.76 L Hgb 11.2 L Hct 35.5 L MCV 94.4 MCH 29.8 MCHC 31.5 L RDW 12.8 Plt Count 245 MPV 9.4 Immature Gran % (Auto) 0.3 Neut % (Auto) 62.4 Lymph % (Auto) 22.5 [place] % (Auto) 9.9 H Eos % (Auto) 4.2 Baso % (Auto) 0.7 Lymph # (Auto) 1.34 [place] # (Auto) 0.6 Eos # (Auto) 0.3 Baso # (Auto) 0.0 Abs Immat Gran (auto) 0.02 Absolute Neuts (auto) 3.7 Absolute Nucleated RBC 0.0 Nucleated RBC % 0.0 Sodium 134 L Potassium 4.2 Chloride 98 Carbon Dioxide 31 H Anion Gap 5 L BUN 26 H Creatinine 0.90 Estim Creat Clear Calc Not Reportable Estimated GFR > 60 Glucose 268 H POC Capillary Glucose 190 H Calcium 8.8 12/31/22 12/31/22 20:12 16:53 WBC RBC Hgb Hct MCV MCH MCHC RDW Plt Count MPV Immature Gran % (Auto) Neut % (Auto) Lymph % (Auto) [place] % (Auto) Eos % (Auto) Baso % (Auto) Lymph # (Auto) [place] # (Auto) Eos # (Auto) Baso # (Auto) Abs Immat Gran (auto) Absolute Neuts (auto) Absolute Nucleated RBC Nucleated RBC % Sodium Potassium Chloride Carbon Dioxide Anion Gap BUN Creatinine Estim Creat Clear Calc Estimated GFR Glucose POC Capillary Glucose 358 H 225 H Calcium Discharge Plan Discharge Attending physician on discharge: Heri Dos Santos Consulting providers: Isatu Vera Discharging Clinician: Heri Dos Santos Anticipated Discharge Date/Time: 01/01/23 10:38 Patient Disposition: SNF Activity: as tolerated Diet: heart healthy Stand Alone Forms: General Discharge Information Follow-up/Referrals: Yeni Parks APRN [Primary Care Provider] - Heri Dos Santos MD [Physician] - Discharge Medications: Continued aspirin [Mayo Chewable Aspirin] 81 mg tablet,chewable 81 mg PO DAILY O
[2023-01-01 11:43] LABS: Glucose Point of Care 307 mg/dl (65-105)
== END 2023-01-01 13:45 ==
LOC: ANHED 23:32 → ANH3MEDSUR 12-30 10:38
PROVIDERS: General Practice; Internal Medicine; Admitting Provider Internal Medicine; Emergency Provider Physician Assistant; PCP Nurse Practitioner Family; Visit Provider Hospitalist
DX: R62.7 Adult failure to thrive (principal); M19.90 Unspecified osteoarthritis, unspecified site; Y92.008 Other place in unspecified non-institutional (private) residence as the place of occurrence of the external cause; R53.81 Other malaise; G89.29 Other chronic pain; M25.519 Pain in unspecified shoulder; R53.1 Weakness; W18.39XA Other fall on same level, initial encounter; J44.9 Chronic obstructive pulmonary disease, unspecified; E78.5 Hyperlipidemia, unspecified; I11.9 Hypertensive heart disease without heart failure; R79.89 Other specified abnormal findings of blood chemistry; I73.9 Peripheral vascular disease, unspecified; N17.9 Acute kidney failure, unspecified; D64.9 Anemia, unspecified; H40.9 Unspecified glaucoma; G47.33 Obstructive sleep apnea (adult) (pediatric); M17.0 Bilateral primary osteoarthritis of knee; E11.43 Type 2 diabetes mellitus with diabetic autonomic (poly)neuropathy; E11.51 Type 2 diabetes mellitus with diabetic peripheral angiopathy without gangrene; I25.10 Atherosclerotic heart disease of native coronary artery without angina pectoris; R06.02 Shortness of breath; R06.2 Wheezing; R29.6 Repeated falls; Z98.62 Peripheral vascular angioplasty status; Z87.891 Personal history of nicotine dependence; Z79.01 Long term (current) use of anticoagulants; Z79.82 Long term (current) use of aspirin; Z79.51 Long term (current) use of inhaled steroids; Z79.891 Long term (current) use of opiate analgesic; Z79.85 Long-term (current) use of injectable non-insulin antidiabetic drugs; Z79.84 Long term (current) use of oral hypoglycemic drugs; Z79.899 Other long term (current) drug therapy
CPT/HCPCS: 36415; 73564; 80048; 82948; 85025; 87636; 97162; 97165; 99285; A9270; G0378

== ENCOUNTER 2023-02-17 14:01 | Outpatient (NON) | payer OTHER, MEDICAID, SELFPAY ==
[2023-02-17 18:41] LABS: Alanine Aminotransferase 16 U/L (6-35); Albumin Level 3.7 g/dL (3.5-5.1); Alkaline Phosphatase 105 U/L (38-126); Anion Gap 2 mmol/L (8-16); Aspartate Amino Transferase 28 U/L (14-36); Bilirubin,Total 0.6 mg/dL (0.2-1.3); Blood Urea Nitrogen 16 mg/dL (7-17); Calcium 8.4 mg/dL (8.4-10.2); Carbon Dioxide 29 mmol/L (22-30); Chloride 103 mmol/L (98-107); Estimated Glomerular Filt Rate > 60; Glucose 68 mg/dL (65-110); Potassium 4.4 mmol/L (3.4-5.0); Sodium 134 mmol/L (137-145)
== END 2023-02-17 14:02 | disposition home or self-care (01) ==
PROVIDERS: PCP Internal Medicine; Referring Provider Nurse Practitioner Family; Visit Provider Nurse Practitioner Family
DX: I11.0 Hypertensive heart disease with heart failure (principal); E11.65 Type 2 diabetes mellitus with hyperglycemia; R53.1 Weakness
CPT/HCPCS: 80053

== ENCOUNTER 2023-03-13 11:33 | Inpatient (IN) | payer OTHER, MEDICAID, SELFPAY ==
[2023-03-13] VITALS (8 sets, daily range): BP systolic 116–138; BP diastolic 46–64; PULSE 76–84; RESP 16–23; TEMP 36–36.6; O2SAT 94–99; BMI 32.0
--- NOTE | 2023-03-13 | ECG_ITS ---
Measurements Intervals [place] Rate: 79 P: -59 VT: 123 QRS: 30 QRSD: 89 T: -8 QT: 387 QTc: 446 Interpretive Statements ECTOPIC ATRIAL RHYTHM BORDERLINE ST-T WAVE ABNORMALITY- ANT/INF LEADS BASELINE ARTIFACT- I, II, AVR, AVL ABNORMAL ECG COMPARED TO ECG 12/28/2022 16:46:04 NO SIGNIFICANT CHANGES Electronically Signed On 03-13-2023 13:32:06 CDT by Nimesh Cyr D.O.
--- NOTE | ~2023-03-13 | XR_ITS ---
EXAMINATION: XR chest 1V portable DATE: 03/13/2023 12:55 INDICATION: Congestive heart failure and COPD presenting with weakness TECHNIQUE: frontal view of the chest was obtained. COMPARISON: Chest radiograph dated 12/28/2022 FINDINGS: The lungs are clear with no focal airspace opacities, pulmonary edema, pleural effusion or pneumothor ax. The cardiomediastinal silhouette is normal. Advanced osteoarthritis at the bilateral glenohumeral joints with remodeling of the bilateral humeral heads more prominent on the right. IMPRESSION: 1. No acute cardiopulmonary disease. Reviewed, dictated and finalized at location A.
[2023-03-13 11:56] LABS: Basophils Percent Auto 0.3 % (0.2-1.2); Eosinophils Absolute Auto 0.1 K/mm3 (0-0.3); Eosinophils Percent Auto 1.1 % (0-4.4); Hematocrit 34.5 % (37.0-47.0); Hemoglobin 10.7 g/dL (12.0-15.0); Immature Granulocyte Absolute 0.02 K/mm3 (0.00-0.031); Immature Granulocyte Percent A 0.3 % (0-0.5); Lymphocytes Absolute Auto 0.94 K/mm3 (0.9-3.2); Lymphocytes Percent Auto 11.8 % (18.3-44.2); Mean Corpuscular Hemoglobin 28.7 pg (26-34); Mean Corpuscular Volume 92.5 fl (80-100); Mean Platelet Volume 9.7 fl (7.4-10.4); Monocytes Absolute Auto 0.6 K/mm3 (0.1-0.6); Neutrophils Absolute Auto 6.4 K/mm3 (1.3-6.7); Neutrophils Percent Auto 79.5 % (45.5-73.1); Platelet Count Result 203 k/mm3 (150-375); Red Blood Count 3.73 M/mm3 (4.2-5.4); Red Cell Distribution Width 14.8 % (11.5-14.5)
[2023-03-13 12:17] LABS: Alanine Aminotransferase 14 U/L (6-35); Albumin Level 3.9 g/dL (3.5-5.1); Alkaline Phosphatase 95 U/L (38-126); Anion Gap 7 mmol/L (8-16); Aspartate Amino Transferase 23 U/L (14-36); Bilirubin,Total 0.8 mg/dL (0.2-1.3); Blood Urea Nitrogen 18 mg/dL (7-17); Calcium 8.6 mg/dL (8.4-10.2); Carbon Dioxide 28 mmol/L (22-30); Chloride 104 mmol/L (98-107); Estimated CRCL calculation 52 ml/min; Estimated Glomerular Filt Rate > 60; Glucose 145 mg/dL (65-110); Potassium 3.4 mmol/L (3.4-5.0); Sodium 139 mmol/L (137-145)
[2023-03-13 12:17] LABS: Appearance Urine Clear (Clear); Bacteria Urine 1+ /hpf; Bilirubin Urine Negative (Negative); Blood Urine Negative (Negative); Color Urine Yellow (Yellow); Glucose Urine UA 3+ mg/dL (Negative); Ketones Urine Trace mg/dL (Negative); Leukocyte Esterase Ur 2+ LEU/UL (Negative); Nitrate Urine Negative (Negative); Protein Urine Negative (Negative); RBC Urine 0-2 /hpf (0-2); Specific Grav Ur 1.016 (1.001-1.035); Squamous Epithelial Cell Urine None seen /hpf (Few); Urobilinogen Urine 0.2 mg/dL (<2.0); WBC Urine 51-100 /hpf
[2023-03-13 12:45] LABS: Add Urine Microscopic? YES
--- NOTE | 2023-03-13 12:46 | PC.NURSE ---
Darlin with [facility] called and stated the nurse Rnajana, who went to see the patient yesterday at home, endorses the patient took her entire months work of [employer] from March 04-. Ranjana said all her boxes of the medication were empty and she was unable to find the pen. That RN notified the pts PCP of this but the patient is stating this was her 10 units of Lantus she takes at night. Though Darlin says this patient does not even have an order for Lantus. PCP did not respond. Darlin states the patient was stable yesterday but has been confused about her own meds and has been fairly noncompliant with them and is nonresponsive with teaching and has not made an appt with her PCP like she says she will. [phone]- Darlin
[2023-03-13 13:16] LABS: SARS-CoV-2 RNA PCR Positive (Negative)
--- NOTE | 2023-03-13 13:35 | ED.WEAKNESS ---
HPI - Weakness General Chief complaint: Weakness Stated complaint: wekaness Time Seen by Provider: 03/13/23 12:08 Source: patient, RN notes reviewed and old records reviewed Mode of arrival: ambulatory Limitations: no limitations History of Present Illness HPI Narrative: This is a 77 year old female with history of COPD, PE, DM who presents for evaluation of weakness. Patient states that she has history of bowel and urinary incontinence and she is unable to wipe herself. She states when her son goes to work she has to sit in her soiled depends sometimes. OTherwise she is normally able to transfer herself to bedside commode. This morning she was unable to even get herself out of bed. She denies chest pain, cough, sob, nausea, vomiting, abdominal pain, headache. She was discharged home 1 month ago from long-term. Related Data Home Medications Medication Instructions Recorded Confirmed rivaroxaban 2.5 mg tablet (Xarelto) 2.5 mg PO BID 10/10/19 02/04/23 timolol maleate 0.5 % once daily 1 drop ophthalmic (eye) Q12H 10/10/19 02/04/23 eye drops aspirin 81 mg chewable tablet 81 mg PO DAILY 01/12/20 02/04/23 (Mayo Chewable Low Dose Aspirin) atorvastatin 80 mg tablet 80 mg PO DAILY 12/25/22 02/04/23 Allergies Allergy/AdvReac Type Severity Reaction Status Date / Time No Known Allergies Allergy Unknown Verified 12/28/22 16:58 Review of Systems Constitutional: Constitutional: Denies fatigue, Denies fever(s) and Reports weakness Cardiovascular: Cardiovascular: Denies syncope, Denies rapid heart rate, Denies irregular heart rhythm, Denies leg edema and Denies dyspnea Respiratory: Respiratory: Denies chest congestion, Denies cough, Denies hemoptysis, Denies excessive phlegm production and Denies dyspnea Gastrointestinal: Gastrointestinal: Denies abdominal pain, Denies bloating, Denies hematochezia, Reports diarrhea, Denies nausea and Denies vomiting Genitourinary: Genitourinary: Denies hematuria and Denies dysuria Musculoskeletal: Musculoskeletal: Denies joint swelling, Denies loss of height and Reports muscle weakness Neurologic: Denies syncope, Denies headache(s), Denies focal weakness and Denies weakness PMFSH Past Medical History Medical History Arthritis Chronic anticoagulation Chronic obstructive pulmonary disease Congestive heart failure Former smoker Glaucoma Hyperlipidemia Hypertension Normocytic anemia Obstructive sleep apnea Peripheral vascular disease Primary osteoarthritis of both knees Pulmonary embolism Type 2 diabetes mellitus with diabetic autonomic neuropathy, with long-term current use of insulin Surgical History Surgical History Gallbladder & bile duct stone with obstruction History of bilateral cataract extraction History of colonoscopy with polypectomy History of tonsillectomy and adenoidectomy History of vascular surgery Right leg stent. Family History Family History Sibling Family history of primary malignant neoplasm of liver Family history of malignant neoplasm of breast in first degree relative Patient's sister is Patient's brother is Mother Family history of malignant neoplasm of breast in first degree relative Patient's mother is Family history of malignant neoplasm Father Patient's father is Social History Social History (Updated 03/13/23 @ 15:46 by Cassidy Aguilera NP) Social History: She lives with son. 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 she has 2 children Surrogate medical decision maker: Nayeli Coles, sibling. Code status: Full code. Smoking packs per day: 2.5 Smoking cigarettes per day: 50.0 Years smoked: 40 Smoking pack-years: 100.00 Smoking status: Former smoker Tobacco type: cigarettes Second harris
--- NOTE | 2023-03-13 13:54 | PM.IMHP ---
H&P: HPI History of Present Illness Date/Time: 03/13/23 13:54 Chief Complaint: Weakness Narrative: this is a 77-year-old female patient who lives at home with her son. He works during the day and the patient is left at home by herself. Typically the patient is in a wheelchair and can get to her bedside commode without any problems. The patient denies have any exposure to COVID. The patient stated that her son leaves to go to the grocery store and to work and typically wears a mask when he goes out. The patient stated that she is fully vaccinated. She has a history of COPD, hyperlipidemia and diabetes. The patient also stated that sometime she does sit in her depends while her son is at work. She denies any body aches or any shortness of breath. No cough no nausea no vomiting or diarrhea. The patient stated that she has been taking all of her medication. The patient stated that she thought that her diabetic shot was supposed to be daily. The patient appears to be on Ozempic which should be once a week. The home health nurse reported that the patient had used all of her Ozempic in 1 week. The patient had a months worth of Ozempic and that is now gone. Her H&H is 10.7 and 34.5. Blood sugars 145. Urine was positive for UTI. The patient was positive for COVID. The patient was started on ceftriaxone for UTI. The patient is being admitted to observation status on the date of service of 03/13/2023. Review of Systems Review of Systems: All systems reviewed & are unremarkable except as noted in HPI and below Constitutional: Constitutional: Reports as per HPI and Reports no additional constitutional complaints Eyes: Eyes: Reports as per HPI and Reports no additional eye complaints ENT: Reports system reviewed and no additional complaints, except as documented and Reports Normal hearing present Cardiovascular: Cardiovascular: Reports no additional cardiovascular complaints Respiratory: Respiratory: Reports no additional respiratory complaints and Reports no additional respiratory complaints Gastrointestinal: Gastrointestinal: Reports as per HPI and Reports no additional gastrointestinal complaints Musculoskeletal: Musculoskeletal: Reports no additional musculoskeletal complaints Integumentary/Breasts: Skin/Breast: Reports system reviewed and no additional complaints, except as docu and Reports as per HPI Neurologic: Reports system reviewed and no additional complaints, except as documented, Reports as per HPI and Reports Normal hearing present Psychiatric: Psychiatric: Reports no additional psychiatric complaints and Reports as per HPI Endocrine: Endocrine: Reports no additional endocrine complaints Hematologic/Lymphatic: Hematologic/Lymphatic: Reports no additional hematologic/lymphatic complaints Allergic/Immunologic: Allergic/Immunologic: Reports no additional allergic/immunologic complaints [facility] Past Medical History Medical History Arthritis Chronic anticoagulation Chronic obstructive pulmonary disease Congestive heart failure Former smoker Glaucoma Hyperlipidemia Hypertension Normocytic anemia Obstructive sleep apnea Peripheral vascular disease Primary osteoarthritis of both knees Pulmonary embolism Type 2 diabetes mellitus with diabetic autonomic neuropathy, with long-term current use of insulin Surgical History Surgical History Gallbladder & bile duct stone with obstruction History of bilateral cataract extraction History of colonoscopy with polypectomy History of tonsillectomy and adenoidectomy History of vascular surgery Right leg stent. Family History Family History Sibling Family history of primary malignant neoplasm of liver Family history of malignant neoplasm of breast in first degree relative Patient's sister is
[2023-03-13] MEDS: ONDANSETRON INJ 4 MG/2 ML VIAL IV PUSH (14:06)
--- NOTE | 2023-03-13 15:36 | PCCCNOTE ---
Received a call from Darlin at [facility], at this time they are unable to take patient back into their services. Darlin stated that patient is unable to care for herself at home therefor she is not appropriate for home care.
--- NOTE | 2023-03-13 15:40 | ADMGEN ---
This patient, Desirae Parham, was admitted to Medical Room 349-01. Patient/family oriented to hospital policies and general routines including ID bracelet, bed and alarms, visiting hours, pain management, procedures, bathroom and other care routines, personal items, smoking policy, room service/diet, and visiting hours. Information on how to activate the Rapid Response Team has been discussed. Patient/Family are encouraged to report perceived risks to care and to ask questions if they do not understand what they are told or what they should do.
[2023-03-13 16:24] LABS: Glucose Point of Care 128 mg/dl (65-105)
[2023-03-13] MEDS: TIMOLOL MALEATE 0.5% OP SOLN 5 ML BOTTLE 1 DROP EACH EYE (21:34)
[2023-03-13] MEDS: RIVAROXABAN 2.5 MG TABLET PO (21:34)
[2023-03-13] MEDS: HYDROcodone/acetaminophen (*CRX) 5-325 MG TABLET 1 TAB PO (21:37)
[2023-03-13 23:15] LABS: Glucose Point of Care 140 mg/dl (65-105)
[2023-03-14] MEDS: WATER FOR IRRIGATION, STERILE 1,000 ML BOTTLE 1000 ML (00:03)
[2023-03-14 05:31] VITALS: BP 94/52; PULSE 74; RESP 18; TEMP 36.5; O2SAT 94
[2023-03-14] MEDS: HYDROcodone/acetaminophen (*CRX) 5-325 MG TABLET 1 TAB PO (05:40)
[2023-03-14 06:17] LABS: Basophils Percent Auto 0.4 % (0.2-1.2); Eosinophils Absolute Auto 0.2 K/mm3 (0-0.3); Eosinophils Percent Auto 2.6 % (0-4.4); Hematocrit 33.3 % (37.0-47.0); Immature Granulocyte Absolute 0.02 K/mm3 (0.00-0.031); Immature Granulocyte Percent A 0.4 % (0-0.5); Lymphocytes Absolute Auto 0.91 K/mm3 (0.9-3.2); Lymphocytes Percent Auto 15.9 % (18.3-44.2); Mean Corpuscular Hemoglobin 28.5 pg (26-34); Mean Corpuscular Volume 94.9 fl (80-100); Mean Platelet Volume 9.5 fl (7.4-10.4); Monocytes Absolute Auto 0.6 K/mm3 (0.1-0.6); Monocytes Percent Auto 10.9 % (2.6-8.5); Neutrophils Percent Auto 69.8 % (45.5-73.1); Platelet Count Result 205 k/mm3 (150-375); Red Blood Count 3.51 M/mm3 (4.2-5.4); Red Cell Distribution Width 14.7 % (11.5-14.5); White Blood Count 5.7 K/mm3 (4.5-10.0)
[2023-03-14 06:31] LABS: Alanine Aminotransferase 12 U/L (6-35); Albumin Level 3.6 g/dL (3.5-5.1); Alkaline Phosphatase 70 U/L (38-126); Anion Gap 6 mmol/L (8-16); Aspartate Amino Transferase 26 U/L (14-36); Bilirubin,Total 0.7 mg/dL (0.2-1.3); Blood Urea Nitrogen 19 mg/dL (7-17); Calcium 7.8 mg/dL (8.4-10.2); Carbon Dioxide 27 mmol/L (22-30); Chloride 102 mmol/L (98-107); Estimated CRCL calculation 57 ml/min; Estimated Glomerular Filt Rate > 60; Glucose 139 mg/dL (65-110); Potassium 3.7 mmol/L (3.4-5.0); Sodium 135 mmol/L (137-145)
[2023-03-14 07:50] VITALS: PULSE 76; RESP 18; O2SAT 95
[2023-03-14 08:20] LABS: Glucose Point of Care 144 mg/dl (65-105)
[2023-03-14 08:37] LABS: Hemoglobin A1C 6.7 % (<5.7)
[2023-03-14 09:20] VITALS: PULSE 80; RESP 20; O2SAT 94
[2023-03-14] MEDS: ATORVASTATIN 40 MG TABLET 80 MG PO (09:20)
[2023-03-14] MEDS: TIMOLOL MALEATE 0.5% OP SOLN 5 ML BOTTLE 1 DROP EACH EYE ×2 (09:20→21:35)
[2023-03-14] MEDS: lisinopriL 10 MG TABLET PO (09:21)
[2023-03-14] MEDS: EMPAGLIFLOZIN 10 MG TABLET PO (09:21)
[2023-03-14] MEDS: CALCIUM CARBONATE (OSCAL) 500 MG TABLET PO (09:21)
[2023-03-14] MEDS: FUROSEMIDE 40 MG TABLET PO (09:21)
[2023-03-14] MEDS: CYANOCOBALAMIN 500 MCG TABLET PO (09:21)
[2023-03-14] MEDS: RIVAROXABAN 2.5 MG TABLET PO ×2 (09:21→21:35)
--- NOTE | 2023-03-14 11:02 | PM.IMPN ---
Progress Note: A&P Assessment and Plan (1) UTI (urinary tract infection): Code(s): N39.0 - Urinary tract infection, site not specified Status: Acute Assessment and Plan: continue ceftriaxone urine and blood cultures are pending tailor antibiotics according to culture and sensitivity (2) SARS-CoV-2 positive: Code(s): U07.1 - COVID-19 Status: Acute Assessment and Plan: asymptomatic. Monitor (3) Controlled diabetes mellitus with neurologic complication: Code(s): E11.49 - Type 2 diabetes mellitus with other diabetic neurological complication Status: Acute Assessment and Plan: Accu-Cheks AC and HS with hypoglycemic protocol. (4) Physical deconditioning: Code(s): R53.81 - Other malaise Status: Acute Assessment and Plan: PT OT evaluation of greatly be appreciated youth care specialist consult greatly be appreciated. (5) Chronic obstructive pulmonary disease: Code(s): J44.9 - Chronic obstructive pulmonary disease, unspecified Status: Acute Assessment and Plan: Continue with home treatment/ inhaler (6) Hyperlipidemia: Code(s): E78.5 - Hyperlipidemia, unspecified Status: Acute Assessment and Plan: continue with atorvastatin (7) Hypertension: Code(s): I10 - Essential (primary) hypertension Status: Acute Assessment and Plan: continue with lisinopril and Lasix (8) Type 2 diabetes mellitus with diabetic peripheral angiopathy without gangrene: Code(s): E11.51 - Type 2 diabetes mellitus with diabetic peripheral angiopathy without gangrene Status: Acute Assessment and Plan: Accu-Cheks AC and HS with sliding scale insulin. (9) DIPTI (obstructive sleep apnea): Code(s): G47.33 - Obstructive sleep apnea (adult) (pediatric) Status: Acute Assessment and Plan: Use home settings for CPAP/BiPAP. 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 Status: Acute Assessment and Plan: Continue with Xarelto Subjective Date/time seen: 03/14/23 11:02 Interval history: remains stable Review of Systems Review of Systems: All systems reviewed & are unremarkable except as noted in HPI and below Constitutional: Constitutional: Reports as per HPI and Reports no additional constitutional complaints Eyes: Eyes: Reports as per HPI and Reports no additional eye complaints ENT: Reports system reviewed and no additional complaints, except as documented and Reports Normal hearing present Cardiovascular: Cardiovascular: Reports no additional cardiovascular complaints Respiratory: Respiratory: Reports no additional respiratory complaints and Reports no additional respiratory complaints Gastrointestinal: Gastrointestinal: Reports as per HPI and Reports no additional gastrointestinal complaints Musculoskeletal: Musculoskeletal: Reports no additional musculoskeletal complaints Integumentary/Breasts: Skin/Breast: Reports system reviewed and no additional complaints, except as docu and Reports as per HPI Neurologic: Reports system reviewed and no additional complaints, except as documented, Reports as per HPI and Reports Normal hearing present Psychiatric: Psychiatric: Reports no additional psychiatric complaints and Reports as per HPI Endocrine: Endocrine: Reports no additional endocrine complaints Hematologic/Lymphatic: Hematologic/Lymphatic: Reports no additional hematologic/lymphatic complaints Allergic/Immunologic: Allergic/Immunologic: Reports no additional allergic/immunologic complaints Exam Const: General: cooperative, healthy appearing, comfortable, no acute distress, well developed, alert, awake, Physically active, average body habitus, well nourished and overweight Nutritional Appearance: overweight Orientation/consciousness: oriented to person, oriented to place, oriented to time and patie
[2023-03-14 12:50] LABS: Glucose Point of Care 206 mg/dl (65-105)
[2023-03-14] MEDS: INSULIN ASPART (*BKC) 100 UNITS/ML SUB-Q (13:00)
[2023-03-14 14:00] VITALS: BP 101/52; PULSE 80; RESP 20; TEMP 36.8; O2SAT 94
[2023-03-14] MEDS: levoFLOXacin 500 MG TABLET PO (16:34)
[2023-03-14 17:25] LABS: Glucose Point of Care 181 mg/dl (65-105)
[2023-03-14 21:29] VITALS: BP 109/71; PULSE 96; RESP 18; TEMP 36.6; O2SAT 97
[2023-03-14 21:58] LABS: Glucose Point of Care 196 mg/dl (65-105)
[2023-03-15 05:47] VITALS: BP 124/72; PULSE 90; RESP 18; TEMP 36.6; O2SAT 99
[2023-03-15 08:38] LABS: Glucose Point of Care 145 mg/dl (65-105)
--- NOTE | 2023-03-15 09:25 | PCOTNOTE ---
Attempted OT evaluation, patient refused saying I'm not getting out of this bed! . Will follow. RN aware.
[2023-03-15 09:30] VITALS: PULSE 90; RESP 18; O2SAT 99
--- NOTE | 2023-03-15 11:04 | PM.IMPN ---
Progress Note: A&P Assessment and Plan (1) UTI (urinary tract infection): Code(s): N39.0 - Urinary tract infection, site not specified Status: Acute Assessment and Plan: Patient pulled her IV last night. IV ceftriaxone changed to p.o. Levaquin urine culture growing E coli pansensitive Blood cultures negative (2) Hallucinations: Code(s): R44.3 - Hallucinations, unspecified Status: Acute Assessment and Plan: Etiology unclear. Could be a combination of UTI and COVID. will start on im haldol. (3) SARS-CoV-2 positive: Code(s): U07.1 - COVID-19 Status: Acute Assessment and Plan: asymptomatic. Monitor (4) Controlled diabetes mellitus with neurologic complication: Code(s): E11.49 - Type 2 diabetes mellitus with other diabetic neurological complication Status: Acute Assessment and Plan: Accu-Cheks AC and HS with hypoglycemic protocol. (5) Physical deconditioning: Code(s): R53.81 - Other malaise Status: Acute Assessment and Plan: PT OT evaluation greatly be appreciated continuum of care manager consult greatly be appreciated. (6) Chronic obstructive pulmonary disease: Code(s): J44.9 - Chronic obstructive pulmonary disease, unspecified Status: Acute Assessment and Plan: Continue with home treatment/ inhaler (7) Hyperlipidemia: Code(s): E78.5 - Hyperlipidemia, unspecified Status: Acute Assessment and Plan: continue with atorvastatin (8) Hypertension: Code(s): I10 - Essential (primary) hypertension Status: Acute Assessment and Plan: continue with lisinopril and Lasix (9) Type 2 diabetes mellitus with diabetic peripheral angiopathy without gangrene: Code(s): E11.51 - Type 2 diabetes mellitus with diabetic peripheral angiopathy without gangrene Status: Acute Assessment and Plan: Accu-Cheks AC and HS with sliding scale insulin. (10) DIPTI (obstructive sleep apnea): Code(s): G47.33 - Obstructive sleep apnea (adult) (pediatric) Status: Acute Assessment and Plan: Use home settings for CPAP/BiPAP. (11) Chronic anticoagulation: Code(s): Z79.01 - senior living (current) use of anticoagulants Status: Acute Assessment and Plan: Continue with Xarelto Subjective Date/time seen: 03/15/23 11:04 Interval history: Patient is confused and hallucinating. Review of Systems Review of Systems: ROS unobtainable: Yes unobtainable due to medical condition and unobtainable due to mental status Exam Const: General: healthy appearing, comfortable, no acute distress, well developed, awake and overweight Nutritional Appearance: overweight Orientation/consciousness: oriented to person, oriented to place, oriented to time and patient oriented x3 Limitations: no limitations HENMT: Head: normal to inspection, No palpable skull fracture present, normocephalic and atraumatic Ears: hearing grossly normal bilaterally and external ears normal Face/Nose/Sinus: Normal external nose present and Normal nares present Eyes: General: appearance normal, both eyes and all related structures Alignment and Position: alignment normal Periorbital: periorbital findings normal Eyelids: eyelids normal Pupils: Equal, round and reactive pupils present EOM: EOMs intact bilaterally Neck: Neck: normal visual inspection, full ROM, no lymphadenopathy, trachea midline and supple Chest: Chest palpation & inspection: normal inspection of the chest Resp: Effort & Inspection: normal respiratory effort Auscultation: clear to auscultation bilaterally Cardio: Palpation: normal PMI Rate: regular rate Rhythm: regular rhythm Heart sounds: S1 normal heart sound present and S2 normal heart sound present Peripheral pulses: Peripheral pulses 2+ throughout GI: Inspection: normal to inspection Auscultation: normal bowel sounds Rectal Exam: deferred Back/Spin
[2023-03-15] MEDS: levoFLOXacin 500 MG TABLET PO (11:22)
[2023-03-15] MEDS: ATORVASTATIN 40 MG TABLET 80 MG PO (11:22)
[2023-03-15] MEDS: EMPAGLIFLOZIN 10 MG TABLET PO (11:22)
[2023-03-15] MEDS: RIVAROXABAN 2.5 MG TABLET PO ×2 (11:22→21:22)
[2023-03-15] MEDS: FUROSEMIDE 40 MG TABLET PO (11:23)
[2023-03-15] MEDS: lisinopriL 10 MG TABLET PO (11:23)
[2023-03-15] MEDS: TIMOLOL MALEATE 0.5% OP SOLN 5 ML BOTTLE 1 DROP EACH EYE ×2 (11:23→21:22)
[2023-03-15] MEDS: CALCIUM CARBONATE (OSCAL) 500 MG TABLET PO ×2 (11:23→16:46)
[2023-03-15] MEDS: CYANOCOBALAMIN 500 MCG TABLET PO (11:23)
[2023-03-15 12:32] LABS: Glucose Point of Care 171 mg/dl (65-105)
[2023-03-15 14:00] VITALS: BP 134/59; PULSE 91; RESP 20; TEMP 36.4; O2SAT 96
[2023-03-15 17:27] LABS: Glucose Point of Care 140 mg/dl (65-105)
[2023-03-15 20:00] VITALS: PULSE 90; RESP 18; O2SAT 99
[2023-03-15 20:42] VITALS: BP 121/74; PULSE 98; RESP 20; TEMP 37.1; O2SAT 97
[2023-03-15 20:51] LABS: Glucose Point of Care 216 mg/dl (65-105)
[2023-03-15] MEDS: INSULIN ASPART (*BKC) 100 UNITS/ML SUB-Q (21:22)
[2023-03-16 06:00] VITALS: BP 119/87; PULSE 84; RESP 20; TEMP 36.6; O2SAT 97
[2023-03-16] MEDS: EMPAGLIFLOZIN 10 MG TABLET PO (07:53)
[2023-03-16] MEDS: ATORVASTATIN 40 MG TABLET 80 MG PO (07:53)
[2023-03-16] MEDS: TIMOLOL MALEATE 0.5% OP SOLN 5 ML BOTTLE 1 DROP EACH EYE ×2 (07:53→20:26)
[2023-03-16] MEDS: CYANOCOBALAMIN 500 MCG TABLET PO (07:53)
[2023-03-16] MEDS: CALCIUM CARBONATE (OSCAL) 500 MG TABLET PO ×2 (07:53→16:38)
[2023-03-16] MEDS: levoFLOXacin 500 MG TABLET PO (07:54)
[2023-03-16] MEDS: RIVAROXABAN 2.5 MG TABLET PO ×2 (07:54→20:26)
[2023-03-16] MEDS: FUROSEMIDE 40 MG TABLET PO (07:54)
[2023-03-16] MEDS: lisinopriL 10 MG TABLET PO (07:54)
[2023-03-16 08:00] VITALS: O2SAT 97
[2023-03-16 08:08] LABS: Glucose Point of Care 167 mg/dl (65-105)
[2023-03-16 12:14] LABS: Glucose Point of Care 231 mg/dl (65-105)
[2023-03-16] MEDS: INSULIN ASPART (*BKC) 100 UNITS/ML SUB-Q ×2 (12:50→12:51)
[2023-03-16 14:00] VITALS: BP 95/59; PULSE 87; RESP 18; TEMP 36.6; O2SAT 95
--- NOTE | 2023-03-16 15:19 | PM.IMPN ---
Progress Note: A&P Assessment and Plan (1) UTI (urinary tract infection): Code(s): N39.0 - Urinary tract infection, site not specified Status: Acute Assessment and Plan: Patient pulled her IV last night. IV ceftriaxone changed to p.o. Levaquin urine culture growing E coli pansensitive Blood cultures negative (2) Hallucinations: Code(s): R44.3 - Hallucinations, unspecified Status: Acute Assessment and Plan: Etiology unclear. Could be a combination of UTI and COVID. will start on im haldol. (3) SARS-CoV-2 positive: Code(s): U07.1 - COVID-19 Status: Acute Assessment and Plan: asymptomatic. Monitor (4) Controlled diabetes mellitus with neurologic complication: Code(s): E11.49 - Type 2 diabetes mellitus with other diabetic neurological complication Status: Acute Assessment and Plan: Accu-Cheks AC and HS with hypoglycemic protocol. (5) Physical deconditioning: Code(s): R53.81 - Other malaise Status: Acute Assessment and Plan: PT OT evaluation greatly be appreciated nonfarm animal caretaker consult greatly be appreciated. (6) Chronic obstructive pulmonary disease: Code(s): J44.9 - Chronic obstructive pulmonary disease, unspecified Status: Acute Assessment and Plan: Continue with home treatment/ inhaler (7) Hyperlipidemia: Code(s): E78.5 - Hyperlipidemia, unspecified Status: Acute Assessment and Plan: continue with atorvastatin (8) Hypertension: Code(s): I10 - Essential (primary) hypertension Status: Acute Assessment and Plan: continue with lisinopril and Lasix (9) Type 2 diabetes mellitus with diabetic peripheral angiopathy without gangrene: Code(s): E11.51 - Type 2 diabetes mellitus with diabetic peripheral angiopathy without gangrene Status: Acute Assessment and Plan: Accu-Cheks AC and HS with sliding scale insulin. (10) DIPTI (obstructive sleep apnea): Code(s): G47.33 - Obstructive sleep apnea (adult) (pediatric) Status: Acute Assessment and Plan: Use home settings for CPAP/BiPAP. (11) Chronic anticoagulation: Code(s): Z79.01 - [facility] (current) use of anticoagulants Status: Acute Assessment and Plan: Continue with Xarelto Subjective Date/time seen: 03/16/23 15:19 Interval history: Patient is confused and hallucinating. Pt does not realize that she is in hospital no insight. Review of Systems Review of Systems: confusion Exam Const: General: cooperative, healthy appearing and overweight; No in distress Nutritional Appearance: overweight Orientation/consciousness: oriented to person HENMT: Head: normal to inspection Resp: Effort & Inspection: no respiratory distress Auscultation: no rhonchi and no wheezes Cardio: Rate: regular rate Rhythm: regular rhythm GI: Inspection: normal to inspection GI Palp: No abdominal tenderness, No Guarding due to palpation present (GI) and No Hepatomegaly present Auscultation: normal bowel sounds Neuro: General: oriented to person Objective Data Vital Signs Vital Signs: Vital Signs - 24 hr 03/15/23 20:42 03/15/23 20:00 03/16/23 06:00 Temperature 37.1 C 36.6 C Pulse Rate 98 90 84 Respiratory Rate 20 18 20 Blood Pressure 121/74 119/87 Pulse Oximetry 97 99 97 Oxygen Delivery Room Air 03/16/23 08:00 03/16/23 08:21 Temperature Pulse Rate Respiratory Rate Blood Pressure Pulse Oximetry 97 Oxygen Delivery Room Air Room Air Intake/Output Intake/Output: Intake & Output 03/13/23 03/14/23 03/15/23 03/16/23 23:59 23:59 23:59 23:59 Intake Total 820 1520 690 240 Output Total 75 400 Balance 745 1520 690 -160 Meds/Results Medications: Active Medications Generic Name Dose Route Start Last Admin Trade Name Freq PRN Reason Stop Dose Admin Hydrocodone Bitart/Acetaminophen 1 tab 03/13/23 20:25
[2023-03-16 17:21] LABS: Glucose Point of Care 182 mg/dl (65-105)
[2023-03-16 20:32] LABS: Glucose Point of Care 229 mg/dl (65-105)
[2023-03-16 21:07] VITALS: BP 119/55; PULSE 86; RESP 20; TEMP 36.6; O2SAT 92
[2023-03-17 06:00] VITALS: BP 124/60; PULSE 83; RESP 20; TEMP 36.6; O2SAT 98
[2023-03-17] MEDS: RIVAROXABAN 2.5 MG TABLET PO ×2 (08:25→20:35)
[2023-03-17] MEDS: TIMOLOL MALEATE 0.5% OP SOLN 5 ML BOTTLE 1 DROP EACH EYE ×2 (08:26→20:35)
[2023-03-17] MEDS: lisinopriL 10 MG TABLET PO (08:26)
[2023-03-17] MEDS: EMPAGLIFLOZIN 10 MG TABLET PO (08:26)
[2023-03-17] MEDS: ATORVASTATIN 40 MG TABLET 80 MG PO (08:26)
[2023-03-17] MEDS: FUROSEMIDE 40 MG TABLET PO (08:26)
[2023-03-17] MEDS: CALCIUM CARBONATE (OSCAL) 500 MG TABLET PO ×2 (08:26→17:23)
[2023-03-17] MEDS: CYANOCOBALAMIN 500 MCG TABLET PO (08:26)
[2023-03-17 08:30] LABS: Glucose Point of Care 191 mg/dl (65-105)
[2023-03-17 12:17] LABS: Glucose Point of Care 316 mg/dl (65-105)
[2023-03-17] MEDS: INSULIN ASPART (*BKC) 100 UNITS/ML SUB-Q ×3 (12:35→20:37)
--- NOTE | 2023-03-17 14:06 | PM.DS ---
DS: Admitting Diagnosis Discharge Date 03/17/2023 Admitting Diagnosis ?Weakness DS: Discharge Diagnosis Discharge Diagnosis (1) UTI (urinary tract infection): Code(s): N39.0 - Urinary tract infection, site not specified Status: Acute Assessment and Plan: Patient pulled her IV last night. IV ceftriaxone changed to p.o. Levaquin urine culture growing E coli pansensitive Blood cultures negative (2) Hallucinations: Code(s): R44.3 - Hallucinations, unspecified Status: Acute Assessment and Plan: Etiology unclear. Could be a combination of UTI and COVID. resolved now after im haldol (3) SARS-CoV-2 positive: Code(s): U07.1 - COVID-19 Status: Acute Assessment and Plan: asymptomatic. Monitor stable for DC (4) Controlled diabetes mellitus with neurologic complication: Code(s): E11.49 - Type 2 diabetes mellitus with other diabetic neurological complication Status: Acute Assessment and Plan: Accu-Cheks AC and HS with hypoglycemic protocol. (5) Physical deconditioning: Code(s): R53.81 - Other malaise Status: Acute Assessment and Plan: PT OT evaluation greatly be appreciated child care supervisor consult greatly be appreciated. (6) Chronic obstructive pulmonary disease: Code(s): J44.9 - Chronic obstructive pulmonary disease, unspecified Status: Acute Assessment and Plan: Continue with home treatment/ inhaler (7) Hyperlipidemia: Code(s): E78.5 - Hyperlipidemia, unspecified Status: Acute Assessment and Plan: continue with atorvastatin (8) Hypertension: Code(s): I10 - Essential (primary) hypertension Status: Acute Assessment and Plan: continue with lisinopril and Lasix (9) Type 2 diabetes mellitus with diabetic peripheral angiopathy without gangrene: Code(s): E11.51 - Type 2 diabetes mellitus with diabetic peripheral angiopathy without gangrene Status: Acute Assessment and Plan: Accu-Cheks AC and HS with sliding scale insulin. (10) DIPTI (obstructive sleep apnea): Code(s): G47.33 - Obstructive sleep apnea (adult) (pediatric) Status: Acute Assessment and Plan: Use home settings for CPAP/BiPAP. (11) Chronic anticoagulation: Code(s): Z79.01 - [facility] (current) use of anticoagulants Status: Acute Assessment and Plan: Continue with Xarelto DS: Summary Hospital Course Hospital Course: 77-year-old female patient who lives at home with her son.? He works during the day and the patient is left at home by herself.? Typically the patient is in a wheelchair and can get to her bedside commode without any problems.? The patient denies have any exposure to COVID.? The patient stated that her son leaves to go to the grocery store and to work and typically wears a mask when he goes out.? The patient stated that she is fully vaccinated.? She has a history of COPD, hyperlipidemia and? diabetes.? The patient also stated that sometime she does sit in her depends while her son is at work.? She denies any body aches or any shortness of breath.? No cough no nausea no vomiting or diarrhea.? The patient stated that she has been taking all of her medication.? The patient stated that she thought that her diabetic shot was supposed to be daily.? The patient appears to be on Ozempic which should be once a week.? The home health nurse reported that the patient had used all of her Ozempic in 1 week.? The patient had a months worth of Ozempic and that is now gone.? Her H&H is 10.7 and 34.5. Blood sugars 145.? Urine was positive for UTI.? The patient was positive for COVID.? The patient was started on ceftriaxone for UTI.? The patient is being admitted to observation status on the date of service of 03/13/2023. Time Spent with Patient Time attestation: Total time spent providing and/or coordinating discharge services: Exam Const: General: c
[2023-03-17 16:53] LABS: Glucose Point of Care 305 mg/dl (65-105)
--- NOTE | 2023-03-17 18:16 | PC.NURSE ---
This nurse received a call from the police dispatch. Pt has been calling 911 and saying she needs help and cannot walk. This nurse went and talked to pt and informed her that she cannot call 911. Pt reoriented. Pt angry angry and confused at this time.
--- NOTE | 2023-03-17 18:26 | PC.NURSE ---
Multiple calls made to family to inform them of pt being discharged. No one has has returned a call back at this time. Both this nurse and cc have been attempting to contact family all shift.
[2023-03-17 20:09] LABS: Glucose Point of Care 257 mg/dl (65-105)
[2023-03-17 20:50] VITALS: BP 104/50; PULSE 93; RESP 20; TEMP 37.5; O2SAT 94
[2023-03-18 06:00] VITALS: BP 118/59; PULSE 83; RESP 18; TEMP 36.9; O2SAT 100
[2023-03-18 08:52] LABS: Glucose Point of Care 184 mg/dl (65-105)
[2023-03-18] MEDS: lisinopriL 10 MG TABLET PO (10:06)
[2023-03-18] MEDS: CALCIUM CARBONATE (OSCAL) 500 MG TABLET PO (10:06)
[2023-03-18] MEDS: RIVAROXABAN 2.5 MG TABLET PO (10:06)
[2023-03-18] MEDS: EMPAGLIFLOZIN 10 MG TABLET PO (10:06)
[2023-03-18] MEDS: ATORVASTATIN 40 MG TABLET 80 MG PO (10:06)
[2023-03-18] MEDS: CYANOCOBALAMIN 500 MCG TABLET PO (10:06)
[2023-03-18] MEDS: FUROSEMIDE 40 MG TABLET PO (10:07)
[2023-03-18] MEDS: TIMOLOL MALEATE 0.5% OP SOLN 5 ML BOTTLE 1 DROP EACH EYE (10:07)
[2023-03-18 12:44] LABS: Glucose Point of Care 284 mg/dl (65-105)
[2023-03-18] MEDS: INSULIN ASPART (*BKC) 100 UNITS/ML SUB-Q (12:57)
== END 2023-03-18 13:56 | DRG 689 ==
LOC: ANHED 12:22 → ANH3MEDSUR 14:30 → ANH3MED 14:50
PROVIDERS: Emergency Medicine; Nurse Practitioner; Admitting Provider Hospitalist; Emergency Provider General Practice; PCP Internal Medicine; Visit Provider Family Medicine
DX: N39.0 Urinary tract infection, site not specified (principal); U07.1 COVID-19; R44.3 Hallucinations, unspecified; B96.20 Unspecified Escherichia coli [E. coli] as the cause of diseases classified elsewhere; E11.49 Type 2 diabetes mellitus with other diabetic neurological complication; E78.5 Hyperlipidemia, unspecified; E11.51 Type 2 diabetes mellitus with diabetic peripheral angiopathy without gangrene; G47.33 Obstructive sleep apnea (adult) (pediatric); H40.9 Unspecified glaucoma; I11.0 Hypertensive heart disease with heart failure; I50.9 Heart failure, unspecified; J44.9 Chronic obstructive pulmonary disease, unspecified; M17.0 Bilateral primary osteoarthritis of knee; M19.90 Unspecified osteoarthritis, unspecified site; R53.81 Other malaise; Z79.4 Long term (current) use of insulin; Z98.41 Cataract extraction status, right eye; Z98.42 Cataract extraction status, left eye; Z79.01 Long term (current) use of anticoagulants; Z86.711 Personal history of pulmonary embolism; Z79.82 Long term (current) use of aspirin; Z95.820 Peripheral vascular angioplasty status with implants and grafts; Z87.891 Personal history of nicotine dependence
CPT/HCPCS: 36415; 71045; 80053; 81001; 82948; 83036; 85025; 87040; 87077; 87086; 87186; 87635; 93005; 96365; 96375; 97110; 97161; 97165; 97530; 99285; A9270; G0378; J0696; J1815; J2405; U0005